=== PATIENT | female | born 1960 | race Caucasian/White ===

== ENCOUNTER → 2016-11-13 | Outpatient (CLI) | payer BC ==
--- NOTE | 2016-11-13 15:22 | KCIC ---
PROCEDURE Two-view right hip HISTORY Right hip pain for 3 or 4 months after injury. COMPARISON None FINDINGS No evidence of bone lesion or bone destruction. No acute fracture. Joint spaces are intact. Mildly air-filled loops of small bowel in the partially visualized right lower quadrant. May represent an ileus. IMPRESSION No acute fracture dislocation. Nonspecific right lower quadrant bowel gas pattern. Electronically signed by: Milton Savage MD (Nov 13, 2016 15:20:39)
== END | disposition home or self-care (01) ==
LOC: KCIC 13:38
PROVIDERS: ATTEND Family Medicine
DX: M25.551 Pain in right hip (principal)
CPT/HCPCS: 73502

== ENCOUNTER → 2016-12-04 | Outpatient (CLI) | payer BC ==
[~2016-12-04] MED LIST: ALPR0.25 PO; ALPR0.5T PO; AMLO10TA4 PO; DICL75TA PO; EZET1TAB5 PO; GLIM1TAB2 PO; GLIM4TAB PO; HYDR-2672 PO; HYDR12.58 PO; LISI40TA PO; METF-620 PO; TRIA1TAB3 PO; VENL150C PO
--- NOTE | 2016-12-04 14:30 | KCIC ---
PROCEDURE Coronary artery calcium score HISTORY Calcium screening. Reason For Study Reason: TYPE II DIABETES, HYPERCHOLESTEROLEMIA, SMOKER / Spl. Instructions: / History: TECHNIQUE High resolution, computed tomography of the heart was performed with ECG gating and suspended respiration using the Siemens HeartView CT. No contrast material was administered. Post processing was performed on the 3-D computer workstation using diastolic phase images to measure the amount of coronary vascular calcium. Scoring was performed utilizing the Agaston Method. FINDINGS Thorax: A 6 millimeter pulmonary nodule is noted in the superior segment right lower lobe. Coronary arteries:CALCIUM IS PRESENT TOTAL AGASTON CALCIUM SCORE =183.3. Calcium is detected in the coronary circulation and confirms the presence of atherosclerotic plaque. The score of each coronary artery is as follows: 29.1 within the left main coronary artery, 94.0 in the LAD, 18.5 in the circumflex, and 41.7 in the right coronary artery. The presence of coronary calcium confirms the presence of atherosclerotic plaque. The greater the amount of coronary calcium, the greater the likelihood of stenotic or occlusive coronary artery disease. However, there is not a one-to-one relationship, and findings may not be site specific. The total amount of calcium correlates best with the total amount of atherosclerotic plaque, although the true "plaque burden" can be underestimated by calcium score. MODERATE coronary atherosclerosis is present. Individuals in this score range typically have mild to moderate luminal irregularity at coronary angiography. There is an INTERMEDIATE RISK of cardiovascular events based on this test. IMPRESSION - 1. Coronary atherosclerosis is present, moderate amount. - 2. Intermediate risk of cardiovascular event. - 3. 6 millimeter pulmonary nodule is noted in the superior segment of the right lower lobe. Followup in 6-12 months is recommended per Fleischner Society recommendations. RECOMMENDATIONS 1. Further evaluation and prevention strategies should be based on global assessment of cardiovascular risk factors in addition to the results of this test. 2. Aggressive reduction of modifiable cardiovascular risk factors should be considered. Additional supporting information concerning the findings and recommendation contained within this report can be found in the consensus statements on coronary vascular calcium published by the [employer] and [employer] and Prevention 5 Conference (Circulation 1996; 94: 4204-6370; J Am Francisco Cardiol 2000; 36: 326-340 and Circulation 2000; 101: 111-116). PQRS STATEMENT One or more of the following individualized dose reduction techniques were utilized for this study: 1.Automated exposure control 2.Adjustment of the mA and/or kV according to patient size 3.Use of iterative reconstruction technique Electronically signed by: Landon Vazquez (Dec 04, 2016 14:29:13)
--- NOTE | 2016-12-04 14:31 | KCIC ---
Bilateral digital screening mammograms with CAD: HISTORY Routine screening. COMPARISON Comparison is made to previous studies dated 11/11/2012. FINDINGS Breast density category B. The skin and nipples show no abnormalities. No abnormal lymph nodes are seen in the axilla. The breast parenchyma shows scattered fibroglandular density. There has been improvement in the appearance of the nodular lesion seen previously which by ultrasound appear to represent cysts. There has however been interval development of additional 4 millimeter nodule centrally in the left breast approximately 8 centimeters deep to the nipple. Further evaluation with ultrasound is recommended. There are no other new dominant masses, suspicious calcifications or architectural distortions. IMPRESSION New 4 millimeter nodule centrally in the left breast approximately 8 centimeters deep to the nipple. Recommend further evaluation with ultrasound. This study was interpreted with the benefit of Computerized Aided Detection (CAD). Mammography is not 100% sensitive in detecting breast cancer. Therefore, a self breast exam and a clinical breast exam are very important. A negative mammogram does not negate a clinically suspicious finding and should not result in a delay in biopsying a clinically suspicious abnormality. BI-RADS category 0: Incomplete. Ultrasound followup is recommended. This patient's information has been entered into a reminder system for the patient to be notified with the results of this examination and a target date for her next mammograms. Electronically signed by: Tatum Kincaid MD (Dec 04, 2016 14:30:02)
== END | disposition home or self-care (01) ==
LOC: KCIC MAMMO 13:10
PROVIDERS: ATTEND Family Medicine
DX: Z12.31 Encounter for screening mammogram for malignant neoplasm of breast (principal); E11.9 Type 2 diabetes mellitus without complications; N63 Unspecified lump in breast; I25.10 Atherosclerotic heart disease of native coronary artery without angina pectoris; E78.00 Pure hypercholesterolemia, unspecified; R91.1 Solitary pulmonary nodule; F17.200 Nicotine dependence, unspecified, uncomplicated
CPT/HCPCS: 75571; G0202; 77067

== ENCOUNTER 2016-12-07 13:37 | Inpatient (IN) | payer BC ==
[~2016-12-07] VITALS: Ht 160 cm; Wt 86.7 kg
[2016-12-07] MEDS ORDERED: PROCHLORPERAZINE 10 MG/2 ML VIAL. IV ONE (14:45)
[2016-12-07] MEDS ORDERED: diphenhydrAMINE 50 MG/ML VIAL IVP ONE (14:45)
[2016-12-07 15:00] LABS: CALCIUM 9.5 mg/dL (8.5-10.1); CREATININE 1.3 mg/dL (0.6-1.0); GFR 42.2; POTASSIUM 4.3 mmol/L (3.5-5.1)
--- NOTE | 2016-12-07 15:32 | RAD ---
Indication headache. Noncontrast images of the head were obtained. No prior imaging of the head is available. An acute calvarial finding is not seen. The visualized paranasal sinuses appear normal. There is no subdural or epidural hematoma. There is a small lucency deep to the right sylvian fissure. This may represent a prominent prominent Virchow Samir space. Microvascular disease accounting for the appearance is not excluded. There is no mass or midline shift. An acute finding is not apparent. There is no evidence of hemorrhage. IMPRESSION: No acute finding apparent in the head PQRS Compliance Statement: One or more of the following individualized dose reduction techniques were utilized for this examination: 1. Automated exposure control 2. Adjustment of the mA and/or kV according to patient size 3. Use of iterative reconstruction technique
--- NOTE | 2016-12-07 16:17 | PHYS DOC ---
Past Medical History Past Medical History: Diabetes-Type II, Hypertension, Other Additional Past Medical Histor: right leg pain Past Surgical History: Appendectomy, Cholecystectomy, , Other Additional Past Surgical Histo: jaw Alcohol Use: Occasionally Drug Use: None Adult General Chief Complaint Chief Complaint: MULTIPLE COMPLAINTS HPI HPI Patient is a 56 year old female who presents with for evaluation of headache, high blood pressure, and high blood glucose. She states she has a gradual onset headache over the past 2 days and has developed bilateral blurry vision today. She denies seeing double, but states both eyes have blurry vision. She does have headaches that this headache started exactly the same as prior, however states this headache is worse than usual; no history of migraines. She notes compliance with her medications. States her blood sugar has been in the 200s and her blood pressure has been in the 180s/90s at home. She saw her retail gift card merchandising this week who stated she has no signs of retinopathy. She denies diplopia, dizziness, trauma, neck pain or manipulation, chest pain, dyspnea, palpitations, diaphoresis, orthopnea, leg pain or swelling , nausea or vomiting, abdominal pain, diarrhea, constipation, dysuria, urinary frequency, fever or chills, or rash. Review of Systems Review of Systems Constitutional: Denies fever or chills [] Eyes: Denies change in visual acuity, redness, or eye pain [] HENT: Denies nasal congestion or sore throat [] Respiratory: Denies cough or shortness of breath [] Cardiovascular: No additional information not addressed in HPI [] GI: Denies abdominal pain, nausea, vomiting, bloody stools or diarrhea [] : Denies dysuria or hematuria [] Musculoskeletal: Denies back pain or joint pain [] Integument: Denies rash or skin lesions [] Neurologic: Denies focal weakness or sensory changes [] Endocrine: Denies polyuria or polydipsia [] Current Medications Current Medications Current Medications Medications (Trade) Dose Ordered Sig/Mercedes Start Time Stop Time Status Last Admin Dose Admin Dexamethasone Sodium Phosphate 10 mg 10 mg 1X ONCE 12/07/16 17:00 12/07/16 17:01 DC 12/07/16 17:06 10 MG Diphenhydramine HCl (Benadryl) 25 mg 1X ONCE 12/07/16 14:45 12/07/16 14:46 DC 12/07/16 14:54 25 MG Haloperidol Lactate (Haldol) 2 mg 1X ONCE 12/07/16 17:00 12/07/16 17:01 DC 12/07/16 17:04 2 MG Ketorolac Tromethamine (Toradol) 15 mg 1X ONCE 12/07/16 16:30 12/07/16 16:31 DC 12/07/16 16:20 15 MG Labetalol HCl (Normodyne) 10 mg 1X ONCE 12/07/16 16:30 12/07/16 16:31 DC 12/07/16 16:20 10 MG Lidocaine HCl (Xylocaine-Mpf 1% Vial) 4 ml 1X STAT 12/07/16 16:54 12/07/16 16:57 DC 12/07/16 17:26 4 ML Magnesium Sulfate/ Dextrose (Magnesium Sulfate PREMIX 1GM) 100 ml @ 100 mls/hr 1X ONCE 12/07/16 17:00 12/07/16 17:59 DC 12/07/16 17:04 100 MLS/HR Prochlorperazine Edisylate (Compazine) 10 mg 1X ONCE 12/07/16 14:45 12/07/16 14:46 DC 12/07/16 14:54 10 MG Allergies Allergies Allergies Coded Allergies Type Severity Reaction Last Updated Verified No Known Drug Allergies 12/07/16 No Physical Exam Physical Exam Constitutional: Well developed, well nourished, no acute distress, non-toxic appearance. [] HENT: Normocephalic, atraumatic, bilateral external ears normal, oropharynx moist, no oral exudates, nose normal. [] Eyes: PERRLA, EOMI, conjunctiva normal, no discharge. [] Neck: Normal range of motion, supple. [] Cardiovascular:Heart rate regular rhythm [] Lungs & Thorax: Bilateral breath sounds clear to auscultation [] Abdomen: Bowel sounds normal, soft, no tenderness. [] Skin: Warm, dry, no erythema, no rash. [] Back: Normal range of motion. [] Extremities: No tenderness, ROM intact, no edema. [] Neurologic: Alert and oriented X 3, normal motor function, normal sensory function, no focal deficits noted, cranial nerves II through XII intact, no nystagmus, no elicited diplopia. [] Psychologic: Affect normal, judgement normal, mood normal. [] Current Patient Data Vital Signs Vital Signs Date Time Temp Pulse Resp B/P Pulse Ox O2 Delivery O2 Flow Rate FiO2 12/07/16 17:51 86 20 180/83 93 12/07/16 17:28 Room Air 12/07/16 14:02 98.1 98.1 Lab Values Laboratory Tests Test 12/07/16 14:30 Sodium Level 133mmol/L (136-145) L Potassium Level 4.3mmol/L (3.5-5.1) Chloride Level 95mmol/L (98-107) L Carbon Dioxide Level 27mmol/L (21-32) Anion Gap 11 (6-14) Blood Urea Nitrogen 23mg/dL (7-20) H Creatinine 1.3mg/dL (0.6-1.0) H Estimated GFR (Cockcroft-Gault) 42.2 Glucose Level 189mg/dL (70-99) H Calcium Level 9.5mg/dL (8.5-10.1) Laboratory Tests 12/07/16 14:30 Radiology/Procedures Radiology/Procedures CT head without contrast IMPRESSION: No acute finding apparent in the head DICTATED and SIGNED BY: INDER RAO MD DATE: 12/07/16 1525 Course & Med Decision Making Course & Med Decision Making Pertinent Labs and Imaging studies reviewed. (See chart for details) Workup is largely unremarkable other than vision changes (states she could not read the paper chart even with her glasses). After multiple medications, her headache is improved/not resolved but her vision is still blurry bilaterally. Will admit for persistent headache with vision changes. Discussed case with Dr. Steele, neurology, who agrees with workup and management thus far and will see her tomorrow. Discussed case with Dr. Terrell, who will admit. Dragon Disclaimer Dragon Disclaimer This electronic medical record was generated, in whole or in part, using a voice recognition dictation system. Departure Departure Impression: Primary Impression: Headache Additional Impression: Blurry vision, bilateral Disposition: ADMITTED INPATIENT Condition: STABLE Referrals: SOHAM AMARAL MD (PCP) Problem Qualifiers Primary Impression: Headache Headache type: unspecified Headache chronicity pattern: acute headache Intractability: intractable Qualified Code: R51 - Headache Mery ANGUIANO MD December 07, 2016 16:17
[2016-12-07] MEDS ORDERED: KETOROLAC TROMETHAMINE 30 MG/ML INJ. IV ONE (16:30)
[2016-12-07] MEDS ORDERED: LABETALOL 20 MG/4 ML DISP.SYRIN. IVP ONE (16:30)
[2016-12-07] MEDS ORDERED: LIDOCAINE 1% PF 2 ML VIAL. NEB STA (16:54)
[2016-12-07] MEDS ORDERED: DEXAMETHASONE SOD PHOS 20 MG/5 ML VIAL. IV ONE (17:00)
[2016-12-07] MEDS ORDERED: HALOPERIDOL LACTATE 5 MG/ML VIAL. IVP ONE (17:00)
[2016-12-07] MEDS ORDERED: MAGNESIUM SULFATE 1GM 100 ML IV ONE (17:00)
[2016-12-07] MEDS ORDERED: ONDANSETRON PF 4 MG/2 ML VIAL. IV PRN (18:15)
[2016-12-07 18:18] LABS: BASO # 0.1 x10^3/uL (0.0-0.2); BASO % 1 % (0-3); EOS % 2 % (0-3); HEMATOCRIT 40.3 % (36.0-47.0); HEMOGLOBIN 13.4 g/dL (12.0-15.5); LYMPH # 1.1 x10^3/uL (1.0-4.8); LYMPH % 10 % (24-48); MEAN CORPUSCULAR HEMOGLOBIN 33 pg (25-35); MEAN CORPUSCULAR HGB CONC 33 g/dL (31-37); MEAN CORPUSCULAR VOLUME 98 fL (79-100); MONO % 7 % (0-9); NEUT % 81 % (31-73); PLATELET COUNT 400 x10^3/uL (140-400); RED CELL DISTRIBUTION WIDTH 13.5 % (11.5-14.5); WHITE BLOOD COUNT 11.2 x10^3/uL (4.0-11.0)
[2016-12-07] MEDS: ACETAMINOPHEN 325 MG TABLET. PO PRN (19:51)
[2016-12-07 21:01] VITALS: BP 170/61
[2016-12-07] MEDS ORDERED: ALPRAZolam 0.5 MG TABLET PO PRN (21:15)
[2016-12-07] MEDS ORDERED: HYDR12.58 PO (21:39)
[2016-12-07] MEDS ORDERED: ALPR0.5T PO (21:39)
[2016-12-07] MEDS ORDERED: GLIM1TAB2 PO (21:39)
[2016-12-07] MEDS ORDERED: LISI40TA PO (21:39)
[2016-12-07] MEDS ORDERED: METF-620 PO (21:39)
[2016-12-07 23:45] VITALS: BP 187/60
[2016-12-08] VITALS (7 sets, daily range): BP systolic 165–218; BP diastolic 66–92
--- NOTE | 2016-12-08 00:28 | HP ---
ADMIT DATE: 12/07/2016 CHIEF COMPLAINT: Headache and visual changes. HISTORY OF PRESENT ILLNESS: The patient is a pleasant 56-year-old female presents with headache. They tried to give her a lot of medicines in the ER, but that did not seem to help. I have discussed the case with ER physician. We are going to admit the patient with consultation to Neurology. I am going to get an MRI as well. PAST MEDICAL HISTORY: Alcohol abuse, tobacco abuse and headache. ALLERGIES: None. FAMILY HISTORY: Headache. SOCIAL HISTORY: She smokes and she drinks. No drugs. She is . MEDICATIONS: Reviewed, please refer to the MRAD. REVIEW OF SYSTEMS: GENERAL: No history of weight change, weakness or fevers. SKIN: No bruising, hair changes or rashes. EYES: No blurred, double or loss of vision. NOSE AND THROAT: No history of nosebleeds, hoarseness or sore throat. HEART: No history of palpitations, chest pain or shortness of breath on exertion. LUNGS: Denies cough, hemoptysis, wheezing or shortness of breath. GASTROINTESTINAL: Denies changes in appetite, nausea, vomiting, diarrhea or constipation. GENITOURINARY: No history of frequency, urgency, hesitancy or nocturia. NEUROLOGIC: She complains of headache. She does complain of visual changes. PSYCHIATRIC: No history of panic, anxiety or depression. ENDOCRINE: No history of heat or cold intolerance, polyuria or polydipsia. EXTREMITIES: Denies muscle weakness, joint pain, pain on walking or stiffness. PHYSICAL EXAMINATION: VITAL SIGNS: Temperature afebrile, pulse 77, respirations 23, blood pressure 116/70. GENERAL: She is alert, cooperative, complaining of headache. HEART: Normal S1, S2. LUNGS: Diminished with wheezing from her smoking, suspect she has COPD. ABDOMEN: Positive bowel sounds, nontender. EXTREMITIES: Trace edema. SKIN: No rashes. PSYCHIATRIC: She is depressed. VASCULAR: Good capillary refill. ENDOCRINE: No thyromegaly. LYMPHATICS: No cervical nodes. HEMATOPOIETIC: No bruising. NEUROLOGICAL: She is moving all extremities. No focal deficits. ASSESSMENT AND PLAN: Headache, suspect migraine variant with some visual changes. The patient has been admitted. We will get an MRI in the morning. Consult Neurology. p.r.n. antiemetics, p.r.n. narcotics, IV fluids. DORAL Estrellita RIZO DO DR: DUSTIN/conor JOB#: [id number] / [id number]
[2016-12-08] MEDS: ACETAMINOPHEN 325 MG TABLET. PO PRN (05:40)
--- NOTE | 2016-12-08 06:52 | ACF ---
Admission Forms Criteria HEADACHES Clinical Indications for Admission to Inpatient Care (Place 'X' for any and all applicable criteria): Admission is indicated for ANY ONE of the following(1)(2)(3)(4): [X]I. Inpatient admission required rather than observational care (Also use Headaches: Observation Care as appropriate) because of ANY ONE of the following: [ ]a) Severe pain requiring acute inpatient management [ ]b) Altered mental status that is severe or persistent [ ]c) Vomiting or dehydration that is severe or persistent [ ]d) New-onset focal neurologic deficit that is severe or persistent [X]e) Hypertension requiring inpatient treatment [ ]f) Severe (new) neurologic findings requiring inpatient care as indicated by ANY ONE of following(9)(10): [ ]1) Papilledema [ ]2) Cerebral edema [ ]3) Mass effect on CT scan [ ]4) Cerebral bleeding, ischemia, or vasospasm(16) [ ]5) Hydrocephalus(17) [ ]6) Uncontrolled seizures [ ]g) IV infusion of anticoagulation, platelet inhibitors vasoactive, or antiarrhythmic medication. [ ]h) Cerebral bleeding, hydrocephalus, or vasospasm monitoring (16) [ ]i) Increased intracranial pressure or cerebral edema monitoring (17) [ ]j) Other condition, treatment or monitoring requiring inpatient admission [ ]II. Unruptured but threatening aneurysm or vascular malformation [ ]III. Venous sinus thrombosis [ ]IV. Increased intracranial pressure [ ]V. Cerebral spinal fluid leak with decreased intracranial pressure [ ]. Medication-overuse headache that has failed all outpatient management options [ ]VII. Vasculitis (eg, giant cell (temporal) arteritis, central nervous system vasculitis) requiring IV corticosteroids, IV antithrombotic therapy, or inpatient monitoring (eg, visual symptoms or findings, other ischemic manifestations)[A](10)(11) Extended stay beyond goal length of stay may be needed for (27): [ ]a) Intractable migraine [ ]b) Subarachnoid or intracranial hemorrhage [ ]c) Malignant hypertension [ ]d) Detoxification from drug withdrawal in medication-overuse headache (29) The original [facility] [employer] content created by Linnea Weaver has been revised. The portions of the content which have been revised are identified through the use of italic text or in bold, and Linnea Weaver has neither reviewed nor approved the modified material.All other unmodified content is copyright [facility]. Please see references footnoted in the original [facility] edition 2016 Admission Criteria Met?: Yes KRANTHI COSME December 08, 2016 06:52
[2016-12-08] MEDS ORDERED: DEXTROSE 50% 25 GM / 50ML DISP.SYRIN. IV PRN (08:15)
--- NOTE | 2016-12-08 08:15 | PDOC ---
PROGRESS NOTES Chief Complaint Chief Complaint cc: headaches A/P Headaches with blurring of vision, acute onset, ? CVA vs Migraine HTN DM with hyperglycemia Plan Pain control neurology consult MRI brain Echo Bp control, on Lisinopril, PRN hydralazine SSI home medications resumed today PT/OT History of Present Illness History of Present Illness Blurring of vision headache better no fever Vitals Vitals Vital Signs Date Time Temp Pulse Resp B/P Pulse Ox O2 Delivery O2 Flow Rate FiO2 12/08/16 08:05 Room Air 12/08/16 07:00 98.3 80 18 165/66 97 98.3 Physical Exam General: Alert, Oriented X3 Heart: Normal S1, Normal S2 Abdomen: Normal bowel sounds Extremities: No clubbing Labs LABS Laboratory Tests Test 12/07/16 14:30 12/08/16 03:45 White Blood Count 11.2x10^3/uL (4.0-11.0) Red Blood Count 4.10x10^6/uL (3.50-5.40) Hemoglobin 13.4g/dL (12.0-15.5) Hematocrit 40.3% (36.0-47.0) Mean Corpuscular Volume 98fL (79-100) Mean Corpuscular Hemoglobin 33pg (25-35) Mean Corpuscular Hemoglobin Concent 33g/dL (31-37) Red Cell Distribution Width 13.5% (11.5-14.5) Platelet Count 400x10^3/uL (140-400) Neutrophils (%) (Auto) 81% (31-73) Lymphocytes (%) (Auto) 10% (24-48) Monocytes (%) (Auto) 7% (0-9) Eosinophils (%) (Auto) 2% (0-3) Basophils (%) (Auto) 1% (0-3) Neutrophils # (Auto) 9.1x10^3uL (1.8-7.7) Lymphocytes # (Auto) 1.1x10^3/uL (1.0-4.8) Monocytes # (Auto) 0.7x10^3/uL (0.0-1.1) Eosinophils # (Auto) 0.3x10^3/uL (0.0-0.7) Basophils # (Auto) 0.1x10^3/uL (0.0-0.2) Erythrocyte Sedimentation Rate 23 (0-25) Sodium Level 133mmol/L (136-145) Potassium Level 4.3mmol/L (3.5-5.1) Chloride Level 95mmol/L (98-107) Carbon Dioxide Level 27mmol/L (21-32) Anion Gap 11 (6-14) Blood Urea Nitrogen 23mg/dL (7-20) Creatinine 1.3mg/dL (0.6-1.0) Estimated GFR (Cockcroft-Gault) 42.2 Glucose Level 189mg/dL (70-99) Calcium Level 9.5mg/dL (8.5-10.1) Glucose (Fingerstick) 217mg/dL (70-99) Assessment and Plan Assessmemt and Plan Problems Medical Problems: (1) Blurry vision, bilateral Status: Acute (2) Headache Status: Acute Problems: Comment Review of Relevant I have reviewed the following items beto (where applicable) has been applied. Labs Laboratory Tests Test 12/07/16 14:30 12/08/16 03:45 White Blood Count 11.2x10^3/uL (4.0-11.0) Red Blood Count 4.10x10^6/uL (3.50-5.40) Hemoglobin 13.4g/dL (12.0-15.5) Hematocrit 40.3% (36.0-47.0) Mean Corpuscular Volume 98fL (79-100) Mean Corpuscular Hemoglobin 33pg (25-35) Mean Corpuscular Hemoglobin Concent 33g/dL (31-37) Red Cell Distribution Width 13.5% (11.5-14.5) Platelet Count 400x10^3/uL (140-400) Neutrophils (%) (Auto) 81% (31-73) Lymphocytes (%) (Auto) 10% (24-48) Monocytes (%) (Auto) 7% (0-9) Eosinophils (%) (Auto) 2% (0-3) Basophils (%) (Auto) 1% (0-3) Neutrophils # (Auto) 9.1x10^3uL (1.8-7.7) Lymphocytes # (Auto) 1.1x10^3/uL (1.0-4.8) Monocytes # (Auto) 0.7x10^3/uL (0.0-1.1) Eosinophils # (Auto) 0.3x10^3/uL (0.0-0.7) Basophils # (Auto) 0.1x10^3/uL (0.0-0.2) Erythrocyte Sedimentation Rate 23 (0-25) Sodium Level 133mmol/L (136-145) Potassium Level 4.3mmol/L (3.5-5.1) Chloride Level 95mmol/L (98-107) Carbon Dioxide Level 27mmol/L (21-32) Anion Gap 11 (6-14) Blood Urea Nitrogen 23mg/dL (7-20) Creatinine 1.3mg/dL (0.6-1.0) Estimated GFR (Cockcroft-Gault) 42.2 Glucose Level 189mg/dL (70-99) Calcium Level 9.5mg/dL (8.5-10.1) Glucose (Fingerstick) 217mg/dL (70-99) Laboratory Tests Test 12/07/16 14:30 12/08/16 03:45 White Blood Count 11.2x10^3/uL (4.0-11.0) Red Blood Count 4.10x10^6/uL (3.50-5.40) Hemoglobin 13.4g/dL (12.0-15.5) Hematocrit 40.3% (36.0-47.0) Mean Corpuscular Volume 98fL (79-100) Mean Corpuscular Hemoglobin 33pg (25-35) Mean Corpuscular Hemoglobin Concent 33g/dL (31-37) Red Cell Distribution Width 13.5% (11.5-14.5) Platelet Count 400x10^3/uL (140-400) Neutrophils (%) (Auto) 81% (31-73) Lymphocytes (%) (Auto) 10% (24-48) Monocytes (%) (Auto) 7% (0-9) Eosinophils (%) (Auto) 2% (0-3) Basophils (%) (Auto) 1% (0-3) Neutrophils # (Auto) 9.1x10^3uL (1.8-7.7) Lymphocytes # (Auto) 1.1x10^3/uL (1.0-4.8) Monocytes # (Auto) 0.7x10^3/uL (0.0-1.1) Eosinophils # (Auto) 0.3x10^3/uL (0.0-0.7) Basophils # (Auto) 0.1x10^3/uL (0.0-0.2) Erythrocyte Sedimentation Rate 23 (0-25) Sodium Level 133mmol/L (136-145) Potassium Level 4.3mmol/L (3.5-5.1) Chloride Level 95mmol/L (98-107) Carbon Dioxide Level 27mmol/L (21-32) Anion Gap 11 (6-14) Blood Urea Nitrogen 23mg/dL (7-20) Creatinine 1.3mg/dL (0.6-1.0) Estimated GFR (Cockcroft-Gault) 42.2 Glucose Level 189mg/dL (70-99) Calcium Level 9.5mg/dL (8.5-10.1) Glucose (Fingerstick) 217mg/dL (70-99) Medications Current Medications Prochlorperazine Edisylate (Compazine) 10 mg 1X ONCE IV Last administered on 14:54; Start 12/07/16 at 14:45; Stop 12/07/16 at 14:46; Status DC Diphenhydramine HCl (Benadryl) 25 mg 1X ONCE IVP Last administered on 14:54; Start 12/07/16 at 14:45; Stop 12/07/16 at 14:46; Status DC Ketorolac Tromethamine (Toradol) 15 mg 1X ONCE IV Last administered on 16:20; Start 12/07/16 at 16:30; Stop 12/07/16 at 16:31; Status DC Labetalol HCl (Normodyne) 10 mg 1X ONCE IVP Last administered on 12/07/16 16: 20; Start 12/07/16 at 16:30; Stop 12/07/16 at 16:31; Status DC Dexamethasone Sodium Phosphate 10 mg 10 mg 1X ONCE IV Last administered on 12/07 17:06; Start 12/07/16 at 17:00; Stop 12/07/16 at 17:01; Status DC Magnesium Sulfate/ Dextrose (Magnesium Sulfate PREMIX 1GM) 100 ml @ 100 mls/hr 1X ONCE IV Last administered on 12/07/16 17:04; Start 12/07/16 at 17:00; Stop 12/07/16 at 17:59; Status DC Haloperidol Lactate (Haldol) 2 mg 1X ONCE IVP Last administered on 12/07/16 17 :04; Start 12/07/16 at 17:00; Stop 12/07/16 at 17:01; Status DC Lidocaine HCl (Xylocaine-Mpf 1% Vial) 4 ml 1X STAT NEB Last administered on 17:26; Start 12/07/16 at 16:54; Stop 12/07/16 at 16:57; Status DC Ondansetron HCl (Zofran) 4 mg PRN Q8HRS PRN IV NAUSEA/VOMITING; Start 12/07/16 at 18:15; Stop 12/08/16 at 18:14 Acetaminophen (Tylenol) 650 mg PRN Q4HRS PRN PO FEVER/PAIN Last administered on 12/08/16 05:40; Start 12/07/16 at 18:15; Stop 12/08/16 at 18:14 Alprazolam (Xanax) 0.5 mg PRN TID PRN PO ANXIETY / AGITATION Last administered on 12/07/16 21:31; Start 12/07/16 at 21:15 Insulin Aspart (Novolog) 0-9 UNITS TIDWMEALS SQ ; Start 12/08/16 at 09:00 Dextrose (Dextrose 50%-Water Syringe) 12.5 gm PRN Q15MIN PRN IV SEE COMMENTS; Start 12/08/16 at 08:15; Status UNV Active Scripts Active Reported Xanax (Alprazolam) 0.5 Mg Tablet 1 Tab PO TID PRN Glimepiride 1 Mg Tablet Unknown Dose PO DAILY Metformin Hcl 1,000 Mg Tablet 1,000 Mg PO BIDWMEALS Hydrochlorothiazide Tablet (Hydrochlorothiazide) 12.5 Mg Tablet 12.5 Mg PO DAILY Lisinopril 40 Mg Tablet 1 Tab PO DAILY Vitals/I & O Vital Sign - Last 24 Hours 12/07/16 12/07/16 12/07/16 12/07/16 14:02 15:54 16:20 16:28 Temp 98.1 98.1 Pulse 117 96 94 82 Resp 20 20 20 B/P 215/109 194/89 194/89 193/88 Pulse Ox 99 96 92 O2 Delivery Room Air 12/07/16 12/07/16 12/07/16 12/07/16 16:36 16:51 17:28 17:51 Pulse 78 76 86 Resp 20 20 20 B/P 151/68 146/97 180/83 Pulse Ox 94 94 99 93 O2 Delivery Room Air 12/07/16 12/07/16 12/07/16 12/08/16 21:01 21:40 23:45 03:45 Temp 98.3 98.5 98.1 98.3 98.5 98.1 Pulse 79 85 83 Resp 16 16 16 B/P 170/61 187/60 181/85 Pulse Ox 96 95 96 O2 Delivery Room Air Room Air Room Air Room Air 12/08/16 12/08/16 07:00 08:05 Temp 98.3 98.3 Pulse 80 Resp 18 B/P 165/66 Pulse Ox 97 O2 Delivery Room Air Room Air Intake and Output 12/07/16 12/07/16 12/08/16 14:59 22:59 06:59 Intake Total 1020 ml Balance 1020 ml CHARMAINE HARDY MD December 08, 2016 08:15
[2016-12-08] MEDS: INSULIN ASPART 300 UNITS/3 ML INSULN.PEN SQ SCH ×3 (09:00→17:00)
[2016-12-08] MEDS ORDERED: LISI40TA PO ×2 (10:58)
[2016-12-08] MEDS ORDERED: EZET1TAB5 PO (10:58)
[2016-12-08] MEDS ORDERED: GLIM4TAB PO (11:04)
[2016-12-08] MEDS ORDERED: ALPR0.25 PO (11:04)
[2016-12-08] MEDS ORDERED: VENL150C PO (11:04)
[2016-12-08] MEDS ORDERED: DICL75TA PO (11:11)
[2016-12-08] MEDS ORDERED: HYDR-2672 PO (11:14)
[2016-12-08] MEDS ORDERED: TRIA1TAB3 PO (11:14)
--- NOTE | 2016-12-08 11:49 | PDOC2 ---
NEUROLOGY CONSULT Date of Admission Date of Admission DATE: 12/08/16 TIME: 11:42 Reason for Consult Reason for Consult: Headache and blurred vision Referring Physician Referring Physician: Dr. Terrell PCP: Dr. Arriaga Source Source: Chart review, Patient History of Present Illness History of Present Illness The patient is a 56-year-old right-handed female who developed headache and blurred vision of gradual onset yesterday. She does have a history of headaches but not with migraine symptoms such as photophonophobia or nausea. She just saw her eye doctor for diabetic exam a week ago and checked out fine. Her headache is now 2/10. She still has the blurred vision. There is no history of stroke, seizure, or head injury. Past Medical History Cardiovascular: HTN Psych: Anxiety Endocrine: Diabetes Past Surgical History Past Surgical History: Appendectomy, Cholecystectomy Family History Family History: Cancer Social History Social History , one pack per day cigarettes, drinks beer 2 or 3 days a week Current Medications Current Medications Current Medications Prochlorperazine Edisylate (Compazine) 10 mg 1X ONCE IV Last administered on 14:54; Start 12/07/16 at 14:45; Stop 12/07/16 at 14:46; Status DC Diphenhydramine HCl (Benadryl) 25 mg 1X ONCE IVP Last administered on 14:54; Start 12/07/16 at 14:45; Stop 12/07/16 at 14:46; Status DC Ketorolac Tromethamine (Toradol) 15 mg 1X ONCE IV Last administered on 16:20; Start 12/07/16 at 16:30; Stop 12/07/16 at 16:31; Status DC Labetalol HCl (Normodyne) 10 mg 1X ONCE IVP Last administered on 12/07/16 16: 20; Start 12/07/16 at 16:30; Stop 12/07/16 at 16:31; Status DC Dexamethasone Sodium Phosphate 10 mg 10 mg 1X ONCE IV Last administered on 12/07 17:06; Start 12/07/16 at 17:00; Stop 12/07/16 at 17:01; Status DC Magnesium Sulfate/ Dextrose (Magnesium Sulfate PREMIX 1GM) 100 ml @ 100 mls/hr 1X ONCE IV Last administered on 12/07/16 17:04; Start 12/07/16 at 17:00; Stop 12/07/16 at 17:59; Status DC Haloperidol Lactate (Haldol) 2 mg 1X ONCE IVP Last administered on 12/07/16 17 :04; Start 12/07/16 at 17:00; Stop 12/07/16 at 17:01; Status DC Lidocaine HCl (Xylocaine-Mpf 1% Vial) 4 ml 1X STAT NEB Last administered on 17:26; Start 12/07/16 at 16:54; Stop 12/07/16 at 16:57; Status DC Ondansetron HCl (Zofran) 4 mg PRN Q8HRS PRN IV NAUSEA/VOMITING; Start 12/07/16 at 18:15; Stop 12/08/16 at 18:14 Acetaminophen (Tylenol) 650 mg PRN Q4HRS PRN PO FEVER/PAIN Last administered on 12/08/16 05:40; Start 12/07/16 at 18:15; Stop 12/08/16 at 18:14 Alprazolam (Xanax) 0.5 mg PRN TID PRN PO ANXIETY / AGITATION Last administered on 12/07/16 21:31; Start 12/07/16 at 21:15 Insulin Aspart (Novolog) 0-9 UNITS TIDWMEALS SQ ; Start 12/08/16 at 09:00 Dextrose (Dextrose 50%-Water Syringe) 12.5 gm PRN Q15MIN PRN IV SEE COMMENTS; Start 12/08/16 at 08:15 Metformin HCl (Glucophage) 1,000 mg BIDWMEALS PO ; Start 12/08/16 at 11:00 Alprazolam (Xanax) 0.75 mg TID PO ; Start 12/08/16 at 14:00; Status UNV Acetaminophen/ Hydrocodone Bitart (Lortab 10/325) 1 tab PRN Q6HRS PRN PO PAIN; Start 12/08/16 at 11:45; Status UNV Lisinopril (Prinivil) 20 mg HS PO ; Start 12/08/16 at 21:00; Status UNV Lisinopril (Prinivil) 40 mg DAILY PO ; Start 12/09/16 at 09:00; Status UNV Triamterene/HCTZ (Maxzide 37.5/ 25mg) 0.5 tab DAILY PO ; Start 12/09/16 at 09:00 ; Status UNV Non-Formulary Medication 75 mg BID PO ; Start 12/08/16 at 21:00; Status UNV Non-Formulary Medication 1 tab HS PO ; Start 12/08/16 at 21:00; Status UNV Non-Formulary Medication 1 tab DAILY PO ; Start 12/09/16 at 09:00; Status UNV Non-Formulary Medication 150 mg BID PO ; Start 12/08/16 at 21:00; Status UNV Active Scripts Active Reported Hydrocodone-Apap 10-325 (Hydrocodone Bit/Acetaminophen) 1 Each Tablet 1 Tab PO PRN Q6HRS PRN Triamterene-Hctz 37.5-25 Mg Tb (Triamterene/Hydrochlorothiazid) 1 Each Tablet 0.5 Tab PO DAILY Diclofenac Sodium 75 Mg Tablet.dr 75 Mg PO BID Xanax (Alprazolam) 0.25 Mg Tablet 3 Tab PO TID Amaryl (Glimepiride) 4 Mg Tablet 1 Tab PO DAILY Effexor Xr (Venlafaxine Hcl) 150 Mg Cap.er.24h 150 Mg PO BID Lisinopril 40 Mg Tablet 40 Mg PO DAILY Lisinopril 40 Mg Tablet 0.5 Tab PO HS Vytorin 10-40 Mg Tablet (Ezetimibe/Simvastatin) 1 Each Tablet 1 Tab PO HS Metformin Hcl 1,000 Mg Tablet 1,000 Mg PO BIDWMEALS Allergies Allergies: Coded Allergies: No Known Drug Allergies (Unverified , 12/07/16) ROS Review of System Negative for fevers, chills, weight loss, shortness of breath, chest pain, indigestion, hematochezia, melena, dysuria. Full 14-point review systems is negative. Physical Exam Physical Examination PHYSICAL EXAMINATION: Vital signs: see above. General appearance is normal and in no acute distress. HEENT: Normocephalic and nontraumatic. Eyes, nose, ears, and throat are unremarkable. Temporal arteries are pulsatile and nontender Neck is supple. No lymphadenopathy. No bruits are heard over the carotid artery. No crepitus. NEUROLOGICAL EXAMINATION: Mental Status Examination: Alert. Oriented to time, place, and person. Answers questions and follows commends. Pupils are equal round and reactive to light and accommodation. Funduscopic exam: No papilledema. Extraocular movements are intact. Visual field exam shows no defect on the direct confrontation. No motor or sensory deficits on the facial exam. Uvula in the midline and the soft palate elevated symmetrically. No deviation of the tongue to any direction. Gross hearing is normal. Shoulder shrug normal. Muscle tone is normal. Muscle strength is 5. Deep tendon reflexes are 2+ all around. Plantar reflex is with flexion response bilaterally. Ojlhtp-kn-twnz test performance is accurate. Tandem walk test is accurate. Alternative movements are accurate. Romberg test is negative. Gait is normal. Stocking pinprick sensory loss. No cerebellar signs are elicited. Vitals VITALS Vital Signs Date Time Temp Pulse Resp B/P Pulse Ox O2 Delivery O2 Flow Rate FiO2 12/08/16 11:10 193/76 12/08/16 11:09 97.7 90 18 95 Room Air 97.7 Labs Labs Laboratory Tests Test 12/07/16 14:30 12/08/16 03:45 White Blood Count 11.2x10^3/uL (4.0-11.0) Red Blood Count 4.10x10^6/uL (3.50-5.40) Hemoglobin 13.4g/dL (12.0-15.5) Hematocrit 40.3% (36.0-47.0) Mean Corpuscular Volume 98fL (79-100) Mean Corpuscular Hemoglobin 33pg (25-35) Mean Corpuscular Hemoglobin Concent 33g/dL (31-37) Red Cell Distribution Width 13.5% (11.5-14.5) Platelet Count 400x10^3/uL (140-400) Neutrophils (%) (Auto) 81% (31-73) Lymphocytes (%) (Auto) 10% (24-48) Monocytes (%) (Auto) 7% (0-9) Eosinophils (%) (Auto) 2% (0-3) Basophils (%) (Auto) 1% (0-3) Neutrophils # (Auto) 9.1x10^3uL (1.8-7.7) Lymphocytes # (Auto) 1.1x10^3/uL (1.0-4.8) Monocytes # (Auto) 0.7x10^3/uL (0.0-1.1) Eosinophils # (Auto) 0.3x10^3/uL (0.0-0.7) Basophils # (Auto) 0.1x10^3/uL (0.0-0.2) Erythrocyte Sedimentation Rate 23 (0-25) Sodium Level 133mmol/L (136-145) Potassium Level 4.3mmol/L (3.5-5.1) Chloride Level 95mmol/L (98-107) Carbon Dioxide Level 27mmol/L (21-32) Anion Gap 11 (6-14) Blood Urea Nitrogen 23mg/dL (7-20) Creatinine 1.3mg/dL (0.6-1.0) Estimated GFR (Cockcroft-Gault) 42.2 Glucose Level 189mg/dL (70-99) Calcium Level 9.5mg/dL (8.5-10.1) Glucose (Fingerstick) 217mg/dL (70-99) Laboratory Tests Test 12/07/16 14:30 12/08/16 03:45 White Blood Count 11.2x10^3/uL (4.0-11.0) Red Blood Count 4.10x10^6/uL (3.50-5.40) Hemoglobin 13.4g/dL (12.0-15.5) Hematocrit 40.3% (36.0-47.0) Mean Corpuscular Volume 98fL (79-100) Mean Corpuscular Hemoglobin 33pg (25-35) Mean Corpuscular Hemoglobin Concent 33g/dL (31-37) Red Cell Distribution Width 13.5% (11.5-14.5) Platelet Count 400x10^3/uL (140-400) Neutrophils (%) (Auto) 81% (31-73) Lymphocytes (%) (Auto) 10% (24-48) Monocytes (%) (Auto) 7% (0-9) Eosinophils (%) (Auto) 2% (0-3) Basophils (%) (Auto) 1% (0-3) Neutrophils # (Auto) 9.1x10^3uL (1.8-7.7) Lymphocytes # (Auto) 1.1x10^3/uL (1.0-4.8) Monocytes # (Auto) 0.7x10^3/uL (0.0-1.1) Eosinophils # (Auto) 0.3x10^3/uL (0.0-0.7) Basophils # (Auto) 0.1x10^3/uL (0.0-0.2) Erythrocyte Sedimentation Rate 23 (0-25) Sodium Level 133mmol/L (136-145) Potassium Level 4.3mmol/L (3.5-5.1) Chloride Level 95mmol/L (98-107) Carbon Dioxide Level 27mmol/L (21-32) Anion Gap 11 (6-14) Blood Urea Nitrogen 23mg/dL (7-20) Creatinine 1.3mg/dL (0.6-1.0) Estimated GFR (Cockcroft-Gault) 42.2 Glucose Level 189mg/dL (70-99) Calcium Level 9.5mg/dL (8.5-10.1) Glucose (Fingerstick) 217mg/dL (70-99) ESR [address] head: Noncontrast images of the head were obtained. No prior imaging of the head is available. An acute calvarial finding is not seen. The visualized paranasal sinuses appear normal. There is no subdural or epidural hematoma. There is a small lucency deep to the right sylvian fissure. This may represent a prominent prominent Virchow Samir space. Microvascular disease accounting for the appearance is not excluded. There is no mass or midline shift. An acute finding is not apparent. There is no evidence of hemorrhage. IMPRESSION: No acute finding apparent in the head Assessment/Plan Assessment/Plan Impression: Headache and visual symptoms most consistent with migraine, but headache features are atypical for migraine, she has no history of migraine, although she has some history of tension headaches. I find nothing wrong with her bedside exam including for endoscopy. There is no evidence of temporal arteritis. Recommendations: MRI of the brain with MR venogram and arteriogram Consider lumbar puncture if the studies are unrewarding Continue current supportive therapy. Again, her headache is now down to 2/10. Thank you for letting me help with the patient's care. HERMINIA DIALLO MD December 08, 2016 11:49
[2016-12-08] MEDS: TRIAMTERENE/HCTZ 37.5/25MG TABLET. PO SCH (12:06)
[2016-12-08] MEDS: DICLOFENAC SODIUM 25 MG TABLET.DR PO SCH ×2 (12:07→20:41)
[2016-12-08] MEDS: HYDROcodone/APAP 10/325 1 TAB TABLET PO PRN ×2 (12:07→18:11)
[2016-12-08] MEDS: LISINOPRIL 40 MG TABLET. PO SCH (12:08)
[2016-12-08] MEDS: GLIMEPIRIDE 2 MG TABLET. PO SCH (12:08)
[2016-12-08] MEDS: VENLAFAXINE 75 MG TABLET. PO SCH ×2 (12:18→20:40)
[2016-12-08] MEDS ORDERED: GADOBUTROL 10 MMOL/10 ML VIAL IV ONE (13:45)
--- NOTE | 2016-12-08 14:34 | RAD ---
PROCEDURE MRI brain with and without contrast. HISTORY Headaches and blurred vision. TECHNIQUE Sagittal T1, sagittal FLAIR, axial T1, axial T2, axial FLAIR, axial T2 gradient, diffusion imaging with ADC map, post-contrast axial, post-contrast sagittal, and post-contrast coronal sequences are provided. 9 milliliters of intravenous Gadavist was administered without complication. COMPARISON CT head from 1 day earlier. FINDINGS There is increased signal on FLAIR imaging mostly involving subcortical white matter in both occipital and parietal lobes, patchy. There is some increased signal on diffusion imaging in this distribution under a centimeter in size but this is probably T2 shine through, there is no ADC correlate. Appearance and distribution are compatible with posterior reversible encephalopathy syndrome. The ventricles and sulci are within normal limits for age. There is no acute intracranial hemorrhage or extra-axial fluid collection. There is no mass effect or midline shift. There is no restricted diffusion in a pattern to suggest an acute infarct. Cervicomedullary junction is unremarkable. Intracranial flow voids are preserved. Right greater than left mastoid air cells are partially opacified. The paranasal sinuses are clear. Fluid in the optic sheaths can be a finding of elevated intracranial pressures. Patchy enhancement corresponds to the areas of FLAIR hyperintensity in the parietal and occipital lobes. No additional area of pathologic enhancement is apparent. IMPRESSION FLAIR hyperintensities involving subcortical white matter with patchy associated enhancement in the parietal and occipital lobes. Appearance and distribution is most suggestive of posterior reversible encephalopathy syndrome. Short-term follow-up may be of benefit. Electronically signed by: Jose Jaimes MD (December 08, 2016 14:33:01)
--- NOTE | 2016-12-08 14:42 | RAD ---
PROCEDURE MR venogram. HISTORY Headaches and blurred vision. TECHNIQUE Source images and 3D maximum intensity projection re-formatted images are provided. COMPARISON MRI brain from the same day. FINDINGS Superior sagittal sinus appears patent as do the transverse sinuses and sigmoid sinuses. Deep cerebral veins are patent. No persistent filling defect is identified. IMPRESSION Normal MR venogram. Electronically signed by: Jose Jaimes MD (December 08, 2016 14:41:04)
--- NOTE | 2016-12-08 16:22 | CARD ---
APPROVED REPORT EXAM: Two-dimensional and M-mode echocardiogram with Doppler and color Doppler. Other Information Quality : AverageHR: 89bpm Rhythm : NSR INDICATION CVA/TIA Echo Enhancing Agent Indication: Rule Out Septal Defect Agent/Amount Used: Agitated Saline 8mL 2D DIMENSIONS RVDd3.1 (2.9-3.5cm)Left Atrium(2D)3.7 (1.6-4.0cm) IVSd1.0 (0.7-1.1cm)Aortic Root(2D)3.0 (2.0-3.7cm) LVDd4.2 (3.9-5.9cm)LVOT Diameter2.3 (1.8-2.4cm) PWd1.1 (0.7-1.1cm)LVDs2.8 (2.5-4.0cm) FS (%) 33.4 %SV49.0 ml LVEF(%)62.4 (>50%) Aortic Valve AoV Peak Mckinley.130.5cm/sAoV VTI28.1cm AO Peak GR.6.8mmHgLVOT Peak Mckinley.104.2cm/s LVOT VTI 22.18cmAO Mean GR.4mmHg IVETT (VMAX)3.72ey0OLY (VTI)3.29cm2 Mitral Valve MV E Zclfdbxm09.3cm/sMV DECEL [id number] MV A Byqxkldm75.0cm/sMV E Mean Gr.5mmHg MV [id number]/A Ratio0.9 MV A [id number] (PHT)5.78cm2 TDI E/Lateral E'9.7E/Medial E'11.5 Pulmonary Valve PV Peak Oeanqhas917.9cm/sPV Peak Grad.4mmHg RVOT VTI16.4cm LEFT VENTRICLE The left ventricle is normal size. There is normal left ventricular wall thickness. Left ventricle sy stolic function is normal. The Ejection Fraction is 60-65%. There is grossly normal LV segmental wall motion. Transmitral Doppler flow pattern is Grade I-abnormal relaxation pattern. There is no ventric ular septal defect visualized. RIGHT VENTRICLE The right ventricle is normal size. The right ventricle is mildly hypertrophied. The right ventricula r systolic function is normal. ATRIA The left atrium size is normal. The right atrium size is normal. The interatrial septum is intact wit h no evidence for an atrial septal defect or patent foramen ovale as noted on 2-D or Doppler imaging. AORTIC VALVE The aortic valve is normal in structure and function. Doppler and Color Flow revealed no significant aortic regurgitation. There is no significant aortic valvular stenosis. MITRAL VALVE The mitral valve is normal in structure and function. There is no evidence of mitral valve prolapse. There is no mitral valve stenosis. Doppler and Color Flow revealed no mitral valve regurgitation note d. TRICUSPID VALVE The tricuspid valve is normal in structure and function. No tricuspid regurgitation. There is no tric uspid valve stenosis. PULMONIC VALVE Doppler and Color Flow revealed trace pulmonic valvular regurgitation. There is no pulmonic valvular stenosis. GREAT VESSELS The aortic root is normal in size. The ascending aorta is normal in size. Normal pulmonary venous robles w (Doppler). The IVC is normal in size and collapses >50% with inspiration. PERICARDIAL EFFUSION There is no pleural effusion. There is no evidence of significant pericardial effusion. Critical Notification Critical Value: No <Conclusion> Left ventricle systolic function is normal. The Ejection Fraction is 60-65%. There is grossly normal LV segmental wall motion.
[2016-12-08] MEDS: ASPIRIN CHEWABLE 81 MG TABLET. PO SCH (17:21)
[2016-12-08] MEDS: ALPRAZolam 0.25 MG TABLET PO SCH ×2 (17:22→20:41)
[2016-12-08] MEDS: LISINOPRIL 20 MG TABLET PO SCH (20:42)
[2016-12-08] MEDS ORDERED: EZETIMIBE 10 MG TABLET. PO SCH (21:00)
[2016-12-08] MEDS ORDERED: SIMVASTATIN 40 MG TABLET. PO SCH (21:00)
[2016-12-09] MEDS: HYDROcodone/APAP 10/325 1 TAB TABLET PO PRN ×2 (03:18→09:41)
[2016-12-09 03:45] VITALS: BP 174/67
[2016-12-09 06:34] LABS: CHOLESTEROL/HDL RATIO 3.5
[2016-12-09 07:00] VITALS: BP 167/82
[2016-12-09] MEDS: INSULIN ASPART 300 UNITS/3 ML INSULN.PEN SQ SCH (08:00)
[2016-12-09] MEDS: GLIMEPIRIDE 2 MG TABLET. PO SCH (08:54)
[2016-12-09] MEDS: ASPIRIN CHEWABLE 81 MG TABLET. PO SCH (08:54)
[2016-12-09] MEDS: ALPRAZolam 0.25 MG TABLET PO SCH (08:55)
[2016-12-09] MEDS: LISINOPRIL 20 MG TABLET PO SCH (08:55)
[2016-12-09] MEDS: VENLAFAXINE 75 MG TABLET. PO SCH (08:55)
[2016-12-09] MEDS: DICLOFENAC SODIUM 25 MG TABLET.DR PO SCH (08:56)
[2016-12-09] MEDS: TRIAMTERENE/HCTZ 37.5/25MG TABLET. PO SCH (08:56)
[2016-12-09] MEDS: LISINOPRIL 40 MG TABLET. PO SCH (08:59)
--- NOTE | 2016-12-09 08:59 | RAD ---
PROCEDURE MRA head without contrast. HISTORY Vision changes and confusion. Posterior reversible encephalopathy syndrome. TECHNIQUE 3D [id number] source images and 3D maximum intensity projection re-formatted images are provided. COMPARISON MRI brain from 1 day earlier. FINDINGS Cavernous carotids are notable for minimal presumed atheromatous irregularity. There is no stenosis or aneurysm. Anterior and middle cerebral arteries are without stenosis or aneurysm. Basilar artery is normal caliber. Posterior cerebral arteries are probably within normal limits. There are bilaterally an area of decreased signal in the P1 segment, symmetric from side to side and at a point of tortuosity, probably flow related artifact rather than a true stenosis given symmetry. If there is strong clinical suspicion/need for further workup for posterior cerebral artery stenoses, CT angiogram or conventional angiogram would be required. IMPRESSION Areas of presumed artifact within the P1 segment of each posterior cerebral artery, symmetric. Short segment stenosis, while less likely, cannot be completely excluded. Electronically signed by: Jose Jaimes MD (December 09, 2016 08:58:09)
[2016-12-09] MEDS ORDERED: amLODIPine BESYLATE 10 MG TABLET PO SCH (09:15)
[2016-12-09] MEDS ORDERED: hydrALAZINE 20 MG/ML VIAL. IVP PRN (09:15)
[2016-12-09] MEDS ORDERED: AMLO10TA4 PO (10:19)
--- NOTE | 2016-12-09 10:23 | PDOC3 ---
Discharge Summary Visit Information Date of Admission: December 07, 2016 Date of Discharge: December 09, 2016 Admitting Diagnosis Comment: Headaches with blurring of vision, acute onset, possibly Migraine, no CVA HTN DM with hyperglycemia Final Diagnosis Problems Medical Problems: (1) Blurry vision, bilateral Status: Acute (2) Headache Status: Acute (3) Migraine Status: Acute Brief Hospital Course Allergies Allergies Coded Allergies Type Severity Reaction Last Updated Verified No Known Drug Allergies 12/07/16 No Vital Signs Vital Signs Date Time Temp Pulse Resp B/P Pulse Ox O2 Delivery O2 Flow Rate FiO2 12/09/16 09:41 75 167/82 12/09/16 09:41 Room Air 12/09/16 07:00 97.6 20 95 97.6 Lab Results Laboratory Tests Test 12/07/16 14:30 12/08/16 03:45 12/09/16 05:20 12/09/16 08:38 White Blood Count 11.2x10^3/uL (4.0-11.0) Red Blood Count 4.10x10^6/uL (3.50-5.40) Hemoglobin 13.4g/dL (12.0-15.5) Hematocrit 40.3% (36.0-47.0) Mean Corpuscular Volume 98fL (79-100) Mean Corpuscular Hemoglobin 33pg (25-35) Mean Corpuscular Hemoglobin Concent 33g/dL (31-37) Red Cell Distribution Width 13.5% (11.5-14.5) Platelet Count 400x10^3/uL (140-400) Neutrophils (%) (Auto) 81% (31-73) Lymphocytes (%) (Auto) 10% (24-48) Monocytes (%) (Auto) 7% (0-9) Eosinophils (%) (Auto) 2% (0-3) Basophils (%) (Auto) 1% (0-3) Neutrophils # (Auto) 9.1x10^3uL (1.8-7.7) Lymphocytes # (Auto) 1.1x10^3/uL (1.0-4.8) Monocytes # (Auto) 0.7x10^3/uL (0.0-1.1) Eosinophils # (Auto) 0.3x10^3/uL (0.0-0.7) Basophils # (Auto) 0.1x10^3/uL (0.0-0.2) Erythrocyte Sedimentation Rate 23 (0-25) Sodium Level 133mmol/L (136-145) Potassium Level 4.3mmol/L (3.5-5.1) Chloride Level 95mmol/L (98-107) Carbon Dioxide Level 27mmol/L (21-32) Anion Gap 11 (6-14) Blood Urea Nitrogen 23mg/dL (7-20) Creatinine 1.3mg/dL (0.6-1.0) Estimated GFR (Cockcroft-Gault) 42.2 Glucose Level 189mg/dL (70-99) Calcium Level 9.5mg/dL (8.5-10.1) Glucose (Fingerstick) 217mg/dL (70-99) 144mg/dL (70-99) Triglycerides Level 194mg/dL (0-150) Cholesterol Level 156mg/dL (0-200) LDL Cholesterol, Calculated 72mg/dL (0-100) VLDL Cholesterol, Calculated 39mg/dL (0-40) Non-HDL Cholesterol Calculated 111mg/dL (0-129) HDL Cholesterol 45mg/dL (40-60) Cholesterol/HDL Ratio 3.5 Laboratory Tests Test 12/09/16 05:20 12/09/16 08:38 Triglycerides Level 194mg/dL (0-150) Cholesterol Level 156mg/dL (0-200) LDL Cholesterol, Calculated 72mg/dL (0-100) VLDL Cholesterol, Calculated 39mg/dL (0-40) Non-HDL Cholesterol Calculated 111mg/dL (0-129) HDL Cholesterol 45mg/dL (40-60) Cholesterol/HDL Ratio 3.5 Glucose (Fingerstick) 144mg/dL (70-99) Brief Hospital Course Ms. Estes is a 56 old F admitted for headaches, neuro assessed, thought could be migraine, Stroke work up neg, BP on high side, Started on PO norvasc. To cont all other home meds and ASA 81 for primary prevention Pt seen and examined COunselling done > 50% dc time time 31 mins Dw family ANd RN Copies of images provided COnsults; neuro Proc: none Discharge Information Condition at Discharge: Improved, Stable Follow Up: Weeks (PCP re BP) Disposition/Orders: D/C to Home Scheduled Alprazolam (Xanax) 3 TAB PO TID (Reported) Diclofenac Sodium (Diclofenac Sodium) 75 MG PO BID (Reported) Ezetimibe/Simvastatin (Vytorin 10-40 Mg Tablet) 1 TAB PO HS (Reported) Glimepiride (Amaryl) 1 TAB PO DAILY (Reported) Lisinopril (Lisinopril) 0.5 TAB PO HS (Reported) Lisinopril (Lisinopril) 40 MG PO DAILY (Reported) Metformin Hcl (Metformin Hcl) 1,000 MG PO BIDWMEALS (Reported) Triamterene/Hydrochlorothiazid (Triamterene-Hctz 37.5-25 Mg Tb) 0.5 TAB PO DAILY (Reported) Venlafaxine Hcl (Effexor Xr) 150 MG PO BID (Reported) Scheduled PRN Hydrocodone Bit/Acetaminophen (Hydrocodone-Apap 10-325 ) 1 TAB PO PRN Q6HRS PRN PRN PAIN (Reported) LULU LIANG MD December 09, 2016 10:23
[2016-12-09 11:00] VITALS: BP 148/72
--- NOTE | 2016-12-09 11:57 | PDOC ---
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 Plan Smoking cessation Aspirin Statin Patient to monitor blood pressure Follow up with me in 3 weeks. Subjective She feels much better, believes her vision has returned to near normal Objective Vital Signs Date Time Temp Pulse Resp B/P Pulse Ox O2 Delivery O2 Flow Rate FiO2 12/09/16 11:29 Room Air 12/09/16 11:00 98.0 81 18 148/72 93 98.0 Intake and Output 12/09/16 07:00 Intake Total 1400 ml Output Total 240 ml Balance 1160 ml Intake Oral 1400 ml Output Urine Total 240 ml # Voids 3 PHYSICAL EXAM Alert. Oriented to time, place and person. PERRL. EOMI. CN: no focal findings. Benign funduscopy Muscle tone: normal. Muscle strength: 5/5 DTR: 2+ Plantar reflex: flexor Gait: not examined in bed. Sensory exam: no abnormal findings. No cerebellar signs elicited. Review of Relevant I have reviewed the following items beto (where applicable) has been applied. Labs Laboratory Tests Test 12/07/16 14:30 12/08/16 03:45 12/09/16 05:20 12/09/16 08:38 White Blood Count 11.2x10^3/uL (4.0-11.0) Red Blood Count 4.10x10^6/uL (3.50-5.40) Hemoglobin 13.4g/dL (12.0-15.5) Hematocrit 40.3% (36.0-47.0) Mean Corpuscular Volume 98fL (79-100) Mean Corpuscular Hemoglobin 33pg (25-35) Mean Corpuscular Hemoglobin Concent 33g/dL (31-37) Red Cell Distribution Width 13.5% (11.5-14.5) Platelet Count 400x10^3/uL (140-400) Neutrophils (%) (Auto) 81% (31-73) Lymphocytes (%) (Auto) 10% (24-48) Monocytes (%) (Auto) 7% (0-9) Eosinophils (%) (Auto) 2% (0-3) Basophils (%) (Auto) 1% (0-3) Neutrophils # (Auto) 9.1x10^3uL (1.8-7.7) Lymphocytes # (Auto) 1.1x10^3/uL (1.0-4.8) Monocytes # (Auto) 0.7x10^3/uL (0.0-1.1) Eosinophils # (Auto) 0.3x10^3/uL (0.0-0.7) Basophils # (Auto) 0.1x10^3/uL (0.0-0.2) Erythrocyte Sedimentation Rate 23 (0-25) Sodium Level 133mmol/L (136-145) Potassium Level 4.3mmol/L (3.5-5.1) Chloride Level 95mmol/L (98-107) Carbon Dioxide Level 27mmol/L (21-32) Anion Gap 11 (6-14) Blood Urea Nitrogen 23mg/dL (7-20) Creatinine 1.3mg/dL (0.6-1.0) Estimated GFR (Cockcroft-Gault) 42.2 Glucose Level 189mg/dL (70-99) Calcium Level 9.5mg/dL (8.5-10.1) Glucose (Fingerstick) 217mg/dL (70-99) 144mg/dL (70-99) Triglycerides Level 194mg/dL (0-150) Cholesterol Level 156mg/dL (0-200) LDL Cholesterol, Calculated 72mg/dL (0-100) VLDL Cholesterol, Calculated 39mg/dL (0-40) Non-HDL Cholesterol Calculated 111mg/dL (0-129) HDL Cholesterol 45mg/dL (40-60) Cholesterol/HDL Ratio 3.5 Laboratory Tests Test 12/09/16 05:20 12/09/16 08:38 Triglycerides Level 194mg/dL (0-150) Cholesterol Level 156mg/dL (0-200) LDL Cholesterol, Calculated 72mg/dL (0-100) VLDL Cholesterol, Calculated 39mg/dL (0-40) Non-HDL Cholesterol Calculated 111mg/dL (0-129) HDL Cholesterol 45mg/dL (40-60) Cholesterol/HDL Ratio 3.5 Glucose (Fingerstick) 144mg/dL (70-99) Medications Current Medications Prochlorperazine Edisylate (Compazine) 10 mg 1X ONCE IV Last administered on 14:54; Start 12/07/16 at 14:45; Stop 12/07/16 at 14:46; Status DC Diphenhydramine HCl (Benadryl) 25 mg 1X ONCE IVP Last administered on 14:54; Start 12/07/16 at 14:45; Stop 12/07/16 at 14:46; Status DC Ketorolac Tromethamine (Toradol) 15 mg 1X ONCE IV Last administered on 16:20; Start 12/07/16 at 16:30; Stop 12/07/16 at 16:31; Status DC Labetalol HCl (Normodyne) 10 mg 1X ONCE IVP Last administered on 12/07/16 16: 20; Start 12/07/16 at 16:30; Stop 12/07/16 at 16:31; Status DC Dexamethasone Sodium Phosphate 10 mg 10 mg 1X ONCE IV Last administered on 12/07 17:06; Start 12/07/16 at 17:00; Stop 12/07/16 at 17:01; Status DC Magnesium Sulfate/ Dextrose (Magnesium Sulfate PREMIX 1GM) 100 ml @ 100 mls/hr 1X ONCE IV Last administered on 12/07/16 17:04; Start 12/07/16 at 17:00; Stop 12/07/16 at 17:59; Status DC Haloperidol Lactate (Haldol) 2 mg 1X ONCE IVP Last administered on 12/07/16 17 :04; Start 12/07/16 at 17:00; Stop 12/07/16 at 17:01; Status DC Lidocaine HCl (Xylocaine-Mpf 1% Vial) 4 ml 1X STAT NEB Last administered on 17:26; Start 12/07/16 at 16:54; Stop 12/07/16 at 16:57; Status DC Ondansetron HCl (Zofran) 4 mg PRN Q8HRS PRN IV NAUSEA/VOMITING; Start 12/07/16 at 18:15; Stop 12/08/16 at 18:14; Status DC Acetaminophen (Tylenol) 650 mg PRN Q4HRS PRN PO FEVER/PAIN Last administered on 12/08/16 05:40; Start 12/07/16 at 18:15; Stop 12/08/16 at 18:14; Status DC Alprazolam (Xanax) 0.5 mg PRN TID PRN PO ANXIETY / AGITATION Last administered on 12/07/16 21:31; Start 12/07/16 at 21:15 Insulin Aspart (Novolog) 0-9 UNITS TIDWMEALS SQ ; Start 12/08/16 at 09:00 Dextrose (Dextrose 50%-Water Syringe) 12.5 gm PRN Q15MIN PRN IV SEE COMMENTS; Start 12/08/16 at 08:15 Metformin HCl (Glucophage) 1,000 mg BIDWMEALS PO Last administered on 12/09/16 08:55; Start 12/08/16 at 11:00 Alprazolam (Xanax) 0.75 mg TID PO Last administered on 12/09/16 08:55; Start at 14:00 Acetaminophen/ Hydrocodone Bitart (Lortab 10/325) 1 tab PRN Q6HRS PRN PO PAIN Last administered on 12/09/16 09:41; Start 12/08/16 at 11:45 Lisinopril (Prinivil) 20 mg HS PO Last administered on 12/08/16 20:42; Start at 21:00 Lisinopril (Prinivil) 40 mg DAILY PO Last administered on 12/09/16 08:59; Start 12/08/16 at 12:30 Triamterene/HCTZ (Maxzide 37.5/ 25mg) 0.5 tab DAILY PO Last administered on 12/09 08:56; Start 12/08/16 at 12:30 Diclofenac Sodium (Voltaren) 75 mg BID PO Last administered on 12/09/16 08:56; Start 12/08/16 at 12:00 EZETIMIBE (Zetia) 10 mg QHS PO Last administered on 12/08/16 20:43; Start at 21:00 Glimepiride (Amaryl) 4 mg DAILY PO Last administered on 12/09/16 08:54; Start 12/08/16 at 12:00 Venlafaxine HCl (Effexor) 150 mg BID PO Last administered on 12/09/16 08:55; Start 12/08/16 at 12:30 Simvastatin (Zocor) 40 mg QHS PO Last administered on 12/08/16 20:43; Start 12/08/16 at 21:00; Stop 12/09/16 at 09:14; Status DC Gadobutrol (Gadavist) 9 mmol 1X ONCE IV Last administered on 12/08/16 13:55; Start 12/08/16 at 13:45; Stop 12/08/16 at 13:46; Status DC Aspirin (Children'S Aspirin) 81 mg DAILYWBKFT PO Last administered on 12/09/16 08:54; Start 12/08/16 at 14:00 Amlodipine Besylate (Norvasc) 10 mg DAILY PO Last administered on 12/09/16 09: 41; Start 12/09/16 at 09:15 Hydralazine HCl (Apresoline) 10 mg PRN Q4HRS PRN IVP ELEVATED BP, SEE COMMENTS ; Start 12/09/16 at 09:15 Atorvastatin Calcium (Lipitor) 20 mg QHS PO ; Start 12/09/16 at 21:00 Active Scripts Active Norvasc (Amlodipine Besylate) 10 Mg Tablet 10 Mg PO DAILY Reported Hydrocodone-Apap 10-325 (Hydrocodone Bit/Acetaminophen) 1 Each Tablet 1 Tab PO PRN Q6HRS PRN Triamterene-Hctz 37.5-25 Mg Tb (Triamterene/Hydrochlorothiazid) 1 Each Tablet 0.5 Tab PO DAILY Diclofenac Sodium 75 Mg Tablet.dr 75 Mg PO BID Xanax (Alprazolam) 0.25 Mg Tablet 3 Tab PO TID Amaryl (Glimepiride) 4 Mg Tablet 1 Tab PO DAILY Effexor Xr (Venlafaxine Hcl) 150 Mg Cap.er.24h 150 Mg PO BID Lisinopril 40 Mg Tablet 40 Mg PO DAILY Lisinopril 40 Mg Tablet 0.5 Tab PO HS Vytorin 10-40 Mg Tablet (Ezetimibe/Simvastatin) 1 Each Tablet 1 Tab PO HS Metformin Hcl 1,000 Mg Tablet 1,000 Mg PO BIDWMEALS Vitals/I & O Vital Sign - Last 24 Hours 12/08/16 12/08/16 12/08/16 12/08/16 12:08 15:00 18:11 19:15 Temp 97.7 98.5 97.7 98.5 Pulse 90 89 89 Resp 18 16 B/P 193/76 193/92 179/66 Pulse Ox 97 97 96 O2 Delivery Room Air Room Air Room Air 12/08/16 12/08/16 12/08/16 12/08/16 19:17 20:00 20:42 23:05 Temp 98.1 98.1 Pulse 89 86 Resp 16 B/P 179/66 170/73 Pulse Ox 97 96 O2 Delivery Room Air Room Air 12/09/16 12/09/16 12/09/16 12/09/16 03:18 03:45 07:00 07:56 Temp 96.6 97.6 96.6 97.6 Pulse 84 75 Resp 16 20 B/P 174/67 167/82 Pulse Ox 95 95 O2 Delivery Room Air Room Air Room Air Room Air 12/09/16 12/09/16 12/09/16 12/09/16 08:59 09:41 09:41 11:00 Temp 98.0 98.0 Pulse 75 75 81 Resp 18 B/P 167/82 167/82 148/72 Pulse Ox 93 O2 Delivery Room Air Room Air 12/09/16 11:29 O2 Delivery Room Air Intake and Output 12/08/16 12/08/16 12/09/16 15:00 23:00 07:00 Intake Total 320 ml 240 ml 840 ml Output Total 240 ml Balance 320 ml 0 ml 840 ml Images MRI and MR venogram reviewed yesterday, MR angiogram reviewed today HERMINIA DIALLO MD December 09, 2016 11:57
[2016-12-09] MEDS ORDERED: ATORVASTATIN CALCIUM 20 MG TABLET PO SCH (21:00)
== END 2016-12-09 11:39 | disposition home or self-care (01) | DRG 103 ==
LOC: ER 13:37 → 6 SOUTH 18:00
PROVIDERS: ADMIT Internal Medicine; ATTEND Internal Medicine
DX: G43.909 Migraine, unspecified, not intractable, without status migrainosus (principal); H53.8 Other visual disturbances; I10 Essential (primary) hypertension; Z90.49 Acquired absence of other specified parts of digestive tract; F10.10 Alcohol abuse, uncomplicated; E11.65 Type 2 diabetes mellitus with hyperglycemia; F41.9 Anxiety disorder, unspecified; Z80.9 Family history of malignant neoplasm, unspecified; F17.210 Nicotine dependence, cigarettes, uncomplicated
CPT/HCPCS: 36415; 70450; 70544; 70553; 80048; 80061; 82947; 85027; 85651; 94640; 96365; 96375; A9585; C8929; J0780; J1100; J1200; J1630; J1815; J1885; J3475; J3490; 92610; 99285-25

== ENCOUNTER → 2016-12-30 | Outpatient (CLI) | payer BC ==
[2016-12-09 11:00] VITALS: BP 148/72
--- NOTE | 2016-12-30 16:44 | KCIC ---
Left breast ultrasound: Reason for examination: Small nodular density on screening mammogram. Comparison is made to mammographic exam dated 11/26/2016. Comparison is also made to previous ultrasound examination of the left breast dated 11/18/2012. Ultrasound examination of the left breast was performed with special attention to the area of mammographic concern and the right axilla. In the 2:00 position 3 cm from the nipple, there is a small hypoechoic circumscribed lesion in parallel orientation measuring approximately 6.5 mm in greatest dimension. This would correspond to site of previous cyst seen and probably represents a complicated cyst. No additional lesions are seen in the breast corresponding with the small lesion seen centrally on mammographic exam. No abnormal appearing lymph nodes are seen in the axilla. IMPRESSION: Small hypoechoic lesion in the 2:00 position which probably represents a complicated cyst. No other focal abnormalities evident in the left breast sonographically. Recommend reevaluation with left breast mammograms and ultrasound in 3 months. BI-RADS Category 3: Probably benign. This patient's information has been entered into a reminder system for the patient to be notified with the results of her examination and a target date for the next mammogram. Electronically signed by: Lexie Kincaid MD (12/30/2016 4:41 PM)
== END | disposition home or self-care (01) ==
LOC: KCIC US 12:42
PROVIDERS: ATTEND Family Medicine
DX: R92.8 Other abnormal and inconclusive findings on diagnostic imaging of breast (principal)
CPT/HCPCS: 76641

== ENCOUNTER 2017-01-19 10:20 | Emergency (ER) | payer BC ==
[~2017-01-19] VITALS: Ht 160 cm; Wt 86.6 kg
[~2017-01-19 10:20] MED LIST changes: +EZET1TAB35 PO; -EZET1TAB5 PO; -HYDR-2672 PO; +HYDR-2766 PO
[2017-01-19 11:26] LABS: BILIRUBIN,URINE NEGATIVE (NEG); GLUCOSE,URINE NEGATIVE (NEG); NITRITE,URINE NEGATIVE (NEG); PH,URINE 6.5; PROTEIN,URINE 100 mg/dL (NEG-TRACE); UROBILINOGEN,URINE 0.2 mg/dL (0.2 mg/dL)
[2017-01-19 11:27] LABS: BASO # 0.1 x10^3/uL (0.0-0.2); BASO % 1 % (0-3); EOS % 2 % (0-3); HEMATOCRIT 38.8 % (36.0-47.0); HEMOGLOBIN 13.3 g/dL (12.0-15.5); LYMPH % 19 % (24-48); MEAN CORPUSCULAR HEMOGLOBIN 33 pg (25-35); MEAN CORPUSCULAR HGB CONC 34 g/dL (31-37); MEAN CORPUSCULAR VOLUME 96 fL (79-100); MONO % 5 % (0-9); NEUT % 72 % (31-73); PLATELET COUNT 346 x10^3/uL (140-400); RED BLOOD COUNT 4.03 x10^6/uL (3.50-5.40); RED CELL DISTRIBUTION WIDTH 13.3 % (11.5-14.5); WHITE BLOOD COUNT 10.5 x10^3/uL (4.0-11.0)
[2017-01-19 11:35] VITALS: BP 137/70
--- NOTE | 2017-01-19 11:46 | PHYS DOC ---
Past Medical History Past Medical History: Diabetes-Type II, Hypertension, Other Additional Past Medical Histor: right leg pain Past Surgical History: Appendectomy, Cholecystectomy, , Other Additional Past Surgical Histo: jaw Alcohol Use: Heavy Additional Information: Pt drinks 1-2 glasses wine daily Drug Use: None Adult General Chief Complaint Chief Complaint: HYPERTENSION HPI HPI Patient is a 56 year old female who presents after she had an episode of diaphoresis at physical therapy. She did not believe she was exerting herself that she just arrived there. She denied any other symptoms such as shortness of breath, chest pain, lightheadedness or dizziness. They checked her blood pressure and it was elevated, the numbers were "high". They contacted patient's primary care doctor's office who recommended she come to the ER. Upon arrival her blood pressure did not remain significantly elevated. She did take her blood pressure medication today. She denies any symptoms. Review of Systems Review of Systems Constitutional: Denies fever or chills [] Eyes: Denies change in visual acuity, redness, or eye pain [] HENT: Denies nasal congestion or sore throat [] Respiratory: Denies cough or shortness of breath [] Cardiovascular: Denies chest pain GI: Denies abdominal pain, nausea, vomiting, bloody stools or diarrhea [] : Denies dysuria or hematuria [] Musculoskeletal: Denies back pain or joint pain [] Integument: Denies rash or skin lesions [] Neurologic: Denies headache, focal weakness or sensory changes [] Allergies Allergies Allergies Coded Allergies Type Severity Reaction Last Updated Verified amlodipine Allergy Intermediate 01/19/17 Yes Physical Exam Physical Exam Constitutional: Well developed, well nourished, no acute distress, non-toxic appearance. [] HENT: Normocephalic, atraumatic, bilateral external ears normal, oropharynx moist, no oral exudates, nose normal. [] Eyes: PERRLA, EOMI, conjunctiva normal, no discharge. [] Neck: Normal range of motion, no tenderness, supple, no stridor. [] Cardiovascular:Heart rate regular with regular rhythm, no murmur [] Lungs & Thorax: Bilateral breath sounds clear to auscultation [] Abdomen: Bowel sounds normal, soft, no tenderness, no masses, no pulsatile masses. [] Skin: Warm, dry, no erythema, no rash. [] Back: No tenderness, no CVA tenderness. [] Extremities: No tenderness, no cyanosis, no clubbing, ROM intact, no edema. [] Neurologic: Alert and oriented X 3, normal motor function, normal sensory function, no focal deficits noted. Cranial nerves II-XII grossly intact Psychologic: Affect normal, judgement normal, mood normal. [] Current Patient Data Vital Signs Vital Signs Date Time Temp Pulse Resp B/P (MAP) Pulse Ox O2 Delivery O2 Flow Rate FiO2 01/19/17 11:35 70 20 137/70 (92) 93 01/19/17 10:27 97.9 Room Air 97.9 Lab Values Laboratory Tests Test 01/19/17 11:00 White Blood Count 10.5 x10^3/uL (4.0-11.0) Red Blood Count 4.03 x10^6/uL (3.50-5.40) Hemoglobin 13.3 g/dL (12.0-15.5) Hematocrit 38.8 % (36.0-47.0) Mean Corpuscular Volume 96 fL (79-100) Mean Corpuscular Hemoglobin 33 pg (25-35) Mean Corpuscular Hemoglobin Concent 34 g/dL (31-37) Red Cell Distribution Width 13.3 % (11.5-14.5) Platelet Count 346 x10^3/uL (140-400) Neutrophils (%) (Auto) 72 % (31-73) Lymphocytes (%) (Auto) 19 % (24-48) L Monocytes (%) (Auto) 5 % (0-9) Eosinophils (%) (Auto) 2 % (0-3) Basophils (%) (Auto) 1 % (0-3) Neutrophils # (Auto) 7.6 x10^3uL (1.8-7.7) Lymphocytes # (Auto) 2.0 x10^3/uL (1.0-4.8) Monocytes # (Auto) 0.6 x10^3/uL (0.0-1.1) Eosinophils # (Auto) 0.2 x10^3/uL (0.0-0.7) Basophils # (Auto) 0.1 x10^3/uL (0.0-0.2) Laboratory Tests 01/19/17 11:00 EKG EKG [] 75 bpm, sinus, normal axis, normal intervals, no ST elevation or depression, nonischemic T waves, interpreted by me Radiology/Procedures Radiology/Procedures [] Course & Med Decision Making Course & Med Decision Making Pertinent Labs and Imaging studies reviewed. (See chart for details) Reviewed patient's prior medical record Patient's exam is reassuring, she is asymptomatic, requesting to leave. Labwork unremarkable. Exam reassuring, blood pressure improved without intervention. Recommended close follow-up with primary care physician, return percussions given. Dragon Disclaimer Dragon Disclaimer This electronic medical record was generated, in whole or in part, using a voice recognition dictation system. Departure Departure Impression: Primary Impression: Hypertension Disposition: 01 HOME, SELF-CARE Condition: STABLE Patient Instructions: Hypertension KAMALJIT CHIU MD Jan 19, 2017 11:46
[2017-01-19 11:52] LABS: BACTERIA,URINE FEW /HPF (0-FEW); SQUAMOUS EPITHELIAL CELL,UR MANY /LPF
--- NOTE | 2017-01-19 12:31 | EKG ---
[facility] [address] [place] [address] Test Date: 2017-01-19 Test Time: 10:33:09 Pat Name: JINA MONTERROSO Department: Room: Gender: F Pool Nurse: : 1960 Requested By: KAMALJIT CHIU Order Number: [id number] Reading MD: Eric Vidal Measurements Intervals [place] Rate: 75 P: 57 WA: 178 QRS: 47 QRSD: 82 T: 56 QT: 390 QTc: 438 Interpretive Statements SINUS RHYTHM Electronically Signed On 01-19-2017 16:56:32 CDT by Eric Vidal
[2017-01-21 15:16] LABS: POTASSIUM ISTAT 4.4 mmol/L (3.5-5.0)
== END 2017-01-19 11:49 | disposition home or self-care (01) ==
LOC: ER 10:20
DX: I10 Essential (primary) hypertension (principal); E11.9 Type 2 diabetes mellitus without complications; F10.10 Alcohol abuse, uncomplicated; Z88.8 Allergy status to other drugs, medicaments and biological substances; Z90.49 Acquired absence of other specified parts of digestive tract
CPT/HCPCS: 36415; 80047; 81001; 85027; 87086; 93005; 99285-25

== ENCOUNTER → 2017-03-17 | Outpatient (CLI) | payer BC ==
--- NOTE | 2017-03-17 10:52 | KCIC ---
- RENAL COMPLETE History: Hypertension TECHNIQUE: Multiple realtime grayscale images were obtained over the kidneys and abdomen. Color doppler and spectral analysis was utilized. Findings: Aortic PSV: 89 cm/s Right Kidney: The Right kidney is small measuring 8.2cm. There is no evidence for mass, nephrolithiasis, or hydronephrosis. The renal vein is patent. Peak Systolic Velocity: 121 cm/s Resistive Index Av.7 Renal-aortic Ratio: 1.4 The wave patterns are normal. There is no evidence for tardus-parvus type wave patterns. Left Kidney: The Left kidney is normal in size measuring 12.1cm. There is no evidence for mass, nephrolithiasis, or hydronephrosis. The renal vein is patent. Peak Systolic Velocity: 101 cm/s Resistive Index Av.7 Renal-aortic Ratio: 1.1 The wave patterns are normal. There is no evidence for tardus-parvus type wave patterns. Interpretation Criteria: Listed in order of greatest positive predictive value. Parameters Suggestive of greater than 60% Stenosis: PSV > 180 cm/sec AT > 70msec AI < 300cm/sec/sec RI > 0.7 R/A Ratio > 3.5 Impression: Small right kidney. There is no sonographic evidence for hemodynamically significant stenosis of the bilateral renal arteries. Electronically signed by: Landon Vazquez MD (03/17/2017 10:49 AM) [place] [id number]
== END | disposition home or self-care (01) ==
LOC: KCIC US 09:23
PROVIDERS: ATTEND Family Medicine
DX: N27.0 Small kidney, unilateral (principal); I10 Essential (primary) hypertension
CPT/HCPCS: 93975

== ENCOUNTER → 2017-04-01 | Outpatient (CLI) | payer BC ==
--- NOTE | 2017-04-01 10:20 | RAD ---
DATE: 04/01/2017 EXAM: DIGITAL DIAGNOSTIC LT, BREAST LEFT HISTORY: Follow-up breast nodule COMPARISON: 12/04/2016 The breast parenchyma shows scattered fibroglandular densities. Breast parenchyma level B. FINDINGS: A tiny nodule seen posteriorly that of the central aspect of left breast on the previous study is less clearly defined on the current cc view and is very poorly visualized on the oblique view. It appears to have regressed. No new or enlarging breast densities are seen. Benign type calcifications are present. No suspicious microcalcifications have developed. Left breast ultrasound, 04/01/2017: A targeted ultrasound exam of the left breast was performed in the area of concern identified on the 12/30/2016 study. Again noted is a 5 x 4 x 6 mm smooth nodule at the 2:00 location located approximately 3 cm from the nipple. There are low level internal echoes. This is probably a complicated cyst. It has shown no significant change. IMPRESSION: 1. The tiny mammographically visualized left breast nodule is stable to perhaps slightly decreased in size since 12/04/2016, suggesting a benign etiology. 2. Unchanged small sonographically visualized nodule at the 2:00 location, probably a complicated cyst.. 3. Follow-up left mammograms and breast ultrasound in 6 months is suggested. BI-RADS CATEGORY: 3 PROBABLY BENIGN FINDING(S)-SHORT INTERVAL FOLLOW-UP SUGGESTED RECOMMENDED FOLLOW-UP: 6M 6 MONTH FOLLOW-UP PQRS compliance statement: Patient information was entered into a reminder system with a target due date for the next mammogram. Mammography is a sensitive method for finding small breast cancers, but it does not detect them all and is not a substitute for careful clinical examination. A negative mammogram does not negate a clinically suspicious finding and should not result in delay in biopsying a clinically suspicious abnormality. "Our facility is accredited by the [employer] Mammography Program."
== END | disposition home or self-care (01) ==
LOC: KCIC MAMMO 09:21
PROVIDERS: ATTEND Family Medicine
DX: N63 Unspecified lump in breast (principal); E11.9 Type 2 diabetes mellitus without complications
CPT/HCPCS: 76641; G0206; 77065

== ENCOUNTER → 2019-02-27 | Outpatient (CLI) | payer BC ==
[~2019-02-27] MED LIST changes: -HYDR-2766 PO; +HYDR-2769 PO; +LISI-130 PO; -LISI40TA PO; -METF-620 PO; +METF10007 PO
--- NOTE | 2019-02-27 14:41 | KCIC ---
Bilateral digital screening mammograms with 3-D tomosynthesis: Reason for examination: Routine screening. Comparison is made to previous studies dated 12/04/2016 and 11/11/2012. Bilateral mammograms in CC and oblique projections were obtained with 2-D imaging and 3-D tomosynthesis imaging on a Siemens Inspiration unit and reviewed on the workstation. Interpretation was made with the benefit of CAD. The skin and nipples show no abnormalities. No abnormal axillary lymph nodes are seen. The breast parenchyma shows scattered fatty and fibroglandular density. (Breast density: Category B.) There are small parenchymal asymmetries seen bilaterally which are stable. There are no new dominant masses, suspicious calcifications or architectural distortion. Impression: No evidence of malignancy. Recommend routine screening. BI-RAD Category 2: Benign. "Our facility is accredited by the [employer] Mammography Program." This patient's information has been entered into a reminder system for the patient to be notified with the results of her examination and a target date for the next mammogram. Electronically signed by: Lexie Kincaid MD (02/27/2019 2:38 PM) [id number]
== END | disposition home or self-care (01) ==
LOC: KCIC MAMMO 12:23
PROVIDERS: ATTEND Family Medicine
DX: Z12.31 Encounter for screening mammogram for malignant neoplasm of breast (principal)
CPT/HCPCS: 77063; 77067

== ENCOUNTER → 2019-05-22 | Outpatient (CLI) | payer BC ==
[~2019-05-22] MED LIST changes: -GLIM1TAB2 PO; +GLIM1TAB3 PO; +REGADENOSON 0.4 MG/5 ML DISP.SYRIN. IV ONE
--- NOTE | 2019-05-22 14:32 | RAD ---
MR#: [id number] Date of Study: 05/22/2019 Ordering Physician: LAURENT MEJIAS, Referring Physician: YAMEL TOWNSEND Tech: RT Javier (R) (N) APPROVED REPORT Test Type: Pharmacological Stress Nurse/Tech: Anamika Howell R.N. Test Indications: pre-op clearance Cardiac History: htn,smoker Medications: Zocor Medical History: See Electronic Medical Record Resting ECG: SR w/inverted T wave in leads AVL, V2. scant ST depression in leads II, V6 Resting Heart Rate: 61 bpm Resting Blood Pressure: 173/70mmHg Pretest Chest Pain: No chest pain Nurse/Tech Notes S1S2, lungs- wheezing in upper lobes Consent: The procedure was explained to the patient in lay terms. Informed consent was witnessed. Teodoro eout was entered into [facility]. History and Stress Test performed by ORIANA Mota, ANATOLY (R) (N) Pharm. Details Pharmacologic stress testing was performed using 0.4mg per 5ml of regadenoson given intravenously ove r 7-10 seconds. Stress Symptoms slight SOA, h/a POST EXERCISE Reason for Termination: Infusion complete Max HR: 77 bpm Max Blood Pressure: 177/70mmHg Blood Pressure response to exercise: Normal blood pressure response during stress. Heart Rate response to exercise: wnl Chest Pain: No. Arrhythmia: No. ST Change: No. INTERPRETATION Stress EKG Conclusion: No evidence of stress induced EKG changes. Imaging Protocol IMAGE PROTOCOL: Rest Tc-99m/stress Tc-99m 1 day Rest: Stress: Viability: Radiopharm.Tc99m ImcqixeqzSl92m Sestamibi Yqmu53wNg 33mCi Duration 15min. 15min. Img Date 05/22/2019 05/22/2019 Inj-Img Cfmw77jad. 60min. Rest Admin Site:IV - Left AntecubitalAdministrator:ORIANA Mota, ANATOLY (R)(N) Stress Admin Site: IV - Left AntecubitalAdministrator: RT Leann HerreraR)(N) STRESS DATA End Diast. Vol.87.0mlAv. Heart Rate63.0bpm End Syst. Vol.27.0mlCO Index BSA0.0L/min Myocardial Kfus676.0gEject. Ihjcivxk67.0% Stress Rates Pk. Fill Rate1.53EDV/secLVtime Pk. Fill 169.13msec Pk. Empty Rate3.85ESV/secLVtime Pk. Xpepi772.76msec 1/3 Pk. Fill1.10EDV/sec Stress Scores Regional WT0.00Summed WT0.00 Regional WM0.00Summed WM1.00 The rest and stress images show normal perfusion, normal contraction and thickening. LV Perf. Quant 17 Seg. SSS1.00 17 Seg. SRS0.00 17 Seg. SDS1.00 Stress Defect Extent (% LAD)0.00Rest Defect Extent (% LAD)0.00Rev. Defect Extent (% LAD)0.00 Stress Defect Extent (% LCX) 1.30Rest Defect Extent (% LCX)0.00Rev. Defect Extent (% LCX)0.00 Stress Defect Extent (% RCA)0.00Rest Defect Extent (% RCA)0.00Rev. Defect Extent (% RCA)0.00 Stress Defect Extent (% LUPE)0.20Rest Defect Extent (% LUPE)0.00Rev. Defect Extent (% LUPE)0.00 Other Information Quality:Good Risk Assessment: Low Risk Conclusion 1. No evidence of EKG changes with stress testing. 2. Normal perfusion at stress/rest. 3. Low risk study. 4. EF > 60%. Signed by : Eric Vidal, Electronically Approved : 05/22/2019 14:31:59
== END | disposition home or self-care (01) ==
LOC: NM 09:37
PROVIDERS: ATTEND Internal Medicine Cardiovascular Disease
DX: Z01.818 Encounter for other preprocedural examination (principal); I10 Essential (primary) hypertension; R07.9 Chest pain, unspecified; Z87.891 Personal history of nicotine dependence
CPT/HCPCS: 78452; 93017; A9500; J2785

== ENCOUNTER → 2019-08-21 | Outpatient (CLI) | payer BC ==
[~2019-08-21] MED LIST changes: +ASPI325T8 PO; -GLIM1TAB3 PO; +GLIM1TAB7 PO; +HYDR-2765 PO; +LOSA-73 PO; +METF100010 PO; +METO-313 PO; +MIRT15TA3 PO; -REGADENOSON 0.4 MG/5 ML DISP.SYRIN. IV ONE; +TRIA1TAB2 PO
[2019-08-21 09:29] LABS: BASO % 0 % (0-3); EOS # 0.4 x10^3/uL (0.0-0.7); EOS % 4 % (0-3); HEMATOCRIT 39.2 % (36.0-47.0); HEMOGLOBIN 13.3 g/dL (12.0-15.5); LYMPH # 3.2 x10^3/uL (1.0-4.8); LYMPH % 28 % (24-48); MEAN CORPUSCULAR HEMOGLOBIN 34 pg (25-35); MEAN CORPUSCULAR HGB CONC 34 g/dL (31-37); MEAN CORPUSCULAR VOLUME 100 fL (79-100); MONO # 0.7 x10^3/uL (0.0-1.1); MONO % 6 % (0-9); NEUT # 6.8 x10^3/uL (1.8-7.7); NEUT % 61 % (31-73); PLATELET COUNT 439 x10^3/uL (140-400); RED BLOOD COUNT 3.94 x10^6/uL (3.50-5.40); WHITE BLOOD COUNT 11.2 x10^3/uL (4.0-11.0)
[2019-08-21 09:40] LABS: ALBUMIN 3.7 g/dL (3.4-5.0); CALCIUM 9.5 mg/dL (8.5-10.1); GFR 56.6; POTASSIUM 4.7 mmol/L (3.5-5.1)
[2019-08-21 09:41] LABS: PROTHROMBIN TIME PATIENT 10.6 SEC (11.7-14.0)
--- NOTE | 2019-08-21 12:56 | RAD ---
EXAM: Chest, 2 views. HISTORY: Hypertension. COMPARISON: None. FINDINGS: 2 views of the chest are obtained. There is no infiltrate, pleural effusion or pneumothorax. The heart is normal in size. There is cervical spinal fusion instrumentation. IMPRESSION: No acute pulmonary finding. Electronically signed by: Lona Casanova MD (08/21/2019 12:53 PM) [place] [id number]
[2019-08-21 23:07] LABS: HEMOGLOBIN A1C 5.9 % (4.8-5.6)
== END | disposition home or self-care (01) ==
LOC: SURGPAT 12:23
PROVIDERS: ATTEND Orthopaedic Surgery
DX: Z01.818 Encounter for other preprocedural examination (principal); M16.11 Unilateral primary osteoarthritis, right hip; Z88.8 Allergy status to other drugs, medicaments and biological substances
CPT/HCPCS: 36415; 71046; 80048; 82040; 82306; 83036; 85025; 85610; 85651; 85730; 87641

== ENCOUNTER 2019-09-05 10:39 | Inpatient (IN) | payer BC ==
[~2019-09-05] VITALS: Ht 161.9 cm; Wt 74.8 kg
[2019-09-05] VITALS (7 sets, daily range): BP systolic 130–174; BP diastolic 52–78
[~2019-09-05 10:39] MED LIST changes: +ACETAMINOPHEN 500 MG TABLET PO PRN; +GABAPENTIN 300 MG CAPSULE. PO PRN; +IV RINGERS,LACTATED 1000ML 1,000 ML IV SCH; +LIDOCAINE 1% PF 2 ML VIAL. ID PRN; +MELOXICAM 7.5 MG TABLET PO PRN; +ONDANSETRON PF 4 MG/2 ML VIAL. IV PRN; +PROCHLORPERAZINE 10 MG/2 ML VIAL. IV PRN; +TRANEXAMIC ACID 1,000 MG in IV NS 50ML -- 1ST BAG INJ ONE; +TRANEXAMIC ACID 1,000 MG in IV NS 50ML -- 2ND BAG INJ ONE; +fentaNYL PF VIAL 100 MCG/2 ML VIAL IV PRN
[2019-09-05] MEDS ORDERED: fentaNYL PF VIAL 100 MCG/2 ML VIAL ONE (11:18)
[2019-09-05] MEDS ORDERED: MIDAZOLAM HCL/PF 2 MG/2 ML VIAL. ONE (11:18)
[2019-09-05] MEDS ORDERED: SEVOFLURANE > 120 MINUTES. IH ONE (11:18)
[2019-09-05] MEDS ORDERED: ROCURONIUM 50 MG/5 ML VIAL. ONE (11:18)
[2019-09-05] MEDS ORDERED: NEOSTIGMINE METHYLSULFATE 5 MG/5 ML SYRINGE. ONE (11:18)
[2019-09-05] MEDS ORDERED: PROPOFOL 20 ML IV ONE (11:19)
[2019-09-05] MEDS ORDERED: GLYCOPYRROLATE 1 MG/5 ML VIAL. ONE (11:19)
[2019-09-05] MEDS ORDERED: ONDANSETRON PF 4 MG/2 ML VIAL. ONE (11:19)
[2019-09-05] MEDS ORDERED: LIDOCAINE 2% PF 5 ML VIAL. ONE (11:19)
[2019-09-05] MEDS ORDERED: DEXAMETHASONE SOD PHOS 4 MG/ML VIAL ONE (11:19)
[2019-09-05 11:53] LABS: PROTHROMBIN TIME PATIENT 12.3 SEC (11.7-14.0)
[2019-09-05] MEDS: INSULIN LISPRO 100 UNIT/ML 3ML VIAL for OP,RR ONLY. SQ PRN ×2 (12:08→15:57)
[2019-09-05] MEDS ORDERED: CALCIUM CARBONATE 500 MG TAB.CHEW PO PRN (13:00)
[2019-09-05] MEDS ORDERED: fentaNYL PF VIAL 100 MCG/2 ML VIAL IV PRN (13:00)
[2019-09-05] MEDS ORDERED: PROCHLORPERAZINE 5 MG TABLET. PO PRN (13:00)
[2019-09-05] MEDS ORDERED: diphenhydrAMINE 50 MG/ML VIAL IV PRN (13:00)
[2019-09-05] MEDS ORDERED: ZOLPIDEM 5 MG TABLET. PO PRN (13:00)
[2019-09-05] MEDS ORDERED: 0.9 % SODIUM CHLORIDE 10 ML DISP.SYRIN. IV PRN (13:00)
[2019-09-05] MEDS ORDERED: MORPHINE SULFATE 4 MG/ML VIAL. IV PRN (13:00)
[2019-09-05] MEDS ORDERED: DEXTROSE 50% 25 GM / 50ML DISP.SYRIN. IV PRN (13:00)
[2019-09-05] MEDS ORDERED: IV DEXTROSE 5% 250 ML BAG. IV PRN (13:00)
--- NOTE | 2019-09-05 13:10 | HP ---
ADMIT DATE: 09/05/2019 CHIEF COMPLAINT: Right hip pain. HISTORY OF PRESENT ILLNESS: The patient is actually familiar to me from a previous evaluation for severe right hip pain, seems to be more muscular in origin at that time and it has been very progressive in the interim and was complicated by some difficulties with hypertension and difficulty participating with physical therapy. The blood pressure is now under much better control, but the hip unfortunately, despite therapy and other nonoperative measures is giving her increasingly severe symptoms impacting her activities of daily living and any walking hurts severely. She has been on narcotic pain medicines as a result and has severe pain in the right groin area radiating to the right upper thigh. PAST MEDICAL HISTORY: Significant for hypertension, hypercholesterolemia, well controlled diabetes mellitus, spinal stenosis. PAST SURGICAL HISTORY: Appendectomy, cholecystectomy, neck surgery, and surgery. FAMILY HISTORY: Father is of lung cancer. Mother alive and healthy. They have a family history of sickle cell disease and some bleeding problems, lung disease, stroke, depression, arthritis and some Alzheimer's. SOCIAL HISTORY: She is a current smoker, smokes only about 6-10 cigarettes a day. Social consumption of alcohol. No drug use. and lives with her spouse. MEDICATIONS: List is reviewed. ALLERGIES: INCLUDE AMLODIPINE AND CATAPRES. REVIEW OF SYSTEMS: Aside from the severe debilitating right hip pain, has no recent febrile illness, chest pain, shortness of breath or other constitutional symptoms. Diabetes, remains well controlled with a hemoglobin A1c in the high 5 range. PHYSICAL EXAMINATION: GENERAL: A pleasant, cooperative 59-year-old female, alert and oriented, no acute distress. VITAL SIGNS: Per admission sheet. HEENT: Atraumatic, normocephalic. HEART: Regular rate and rhythm. LUNGS: Clear to auscultation bilaterally. ABDOMEN: Benign. EXTREMITIES: Examination of the right hip shows limited range of motion and pain on her already limited range of motion extremes. No leg length discrepancy is noted. Negative straight leg raise. No tenderness over the trochanteric bursa on either side. Normal examination of the contralateral hip, normal alignment, stability of bilateral knees and ankles. IMAGING: X-rays show severe degenerative change with lack of joint space superiorly and significant cystic change, both on the femoral head and acetabulum. IMPRESSION: Degenerative right hip. TREATMENT PLAN: I previously gone over with her in clinic and reviewed today risks, benefits, postoperative course of total hip arthroplasty, the possibility of leg length inequality, infection, nerve or blood vessel damage, premature wear or loosening, instability, medical or other anesthetic complications among others. All her questions were answered. She wishes to proceed with surgical evaluation and treatment today. GISELLE PIERCE MD DR: PHOEBE/conor JOB#: [id number] / [id number]
[2019-09-05] MEDS: ALPRAZolam 0.25 MG TABLET PO SCH ×2 (14:00→20:39)
[2019-09-05] MEDS: MORPHINE SULFATE 5 MG, KETOROLAC 30MG VIAL 30 MG, ROPIVacaine 0.5% PF 60 ML, EPINEPHrin... INT ART ONE ×10 (14:07→14:49)
[2019-09-05] MEDS: VENLAFAXINE 50 MG TABLET. PO SCH ×2 (15:00→20:41)
[2019-09-05] MEDS: TRIAMTERENE/HCTZ 37.5/25MG TABLET. PO SCH (15:00)
[2019-09-05] MEDS: SENNOSIDES/DOCUSATE 8.6/50MG TABLET. PO SCH (15:00)
[2019-09-05] MEDS: GLIMEPIRIDE 2 MG TABLET. PO SCH (15:00)
[2019-09-05] MEDS: MULTIVITAMIN with MINERAL TABLET. PO SCH (15:00)
--- NOTE | 2019-09-05 15:21 | PDOC4 ---
Operative Note Operative Note Date of surgery: 08/28/2019 Preoperative diagnosis: Degenerative joint disease right hip Postoperative diagnosis: Same Operative procedure: Right total hip arthroplasty Surgeon: Juan Alberto Assist: Dominic hernandes Anesthesia: Gen. Estimated blood loss: 100 mL Complications: None Specimens: Femoral head to pathology Drains: Hemovac drain and intra-articular pain catheter right hip Operative indications: Please see my orthopedic clinic notes and preoperative history and physical for detailed operative indications. Operative text: Patient was identified procedure verified patient placed in the supine position on the operating table. After adequate amounts of general anesthesia were administered she was placed right side up using the Stulberg hip positioner in the decubitus position all bony prominences were well-padded and the right hip was prepped and draped in standard sterile fashion. After timeout was performed patient procedure identified and verified a curvilinear incision was made centered over the greater trochanter with a standard posterior approach to the hip. The iliotibial band and gluteal fascia were split in line with their fibers Charnley retractor was placed external rotators were divided from their insertion hip capsule was split in a T fashion and the hip was dislocated femoral neck cut made per templating with the femoral cutting guide and femoral head was sized at a size 45 and noted to be severely arthritic. The acetabulum was exposed and the residual labrum and contents of the fovea were excised and reaming was carried out up to a size 51 and a size 52 3-hole hemispherical [employer] sticktight coated shell was impacted in place in proper version and a 35 mm screw placed superiorly with excellent bite. A standard 36 mm inner diameter liner was impacted into place after thorough irrigation carried out normal saline solution femur was then prepared with reaming and broaching up to a size 10 calcar reaming was carried out and a standard offset neck was used to re-create her leg length and offset with a +0 trial 36 mm head initially. Trial components were removed thorough irrigation carried out normal saline solution and a size 10 Synergy porous-coated femoral component standard offset was impacted into place but sunk about 2-1/2-3 mm lower than the broach and there was a small irregular crack anteriorly although I suspect that this was due to the thin anterior cortex in the area I elected to reinforce the area with a 2 mm cable which was tensioned from the calcar area around the greater tuberosity. The femoral stem was solidly placed and due to the slight inferior deviation from the initial trialing and Oxinium +4 36 mm femoral head was impacted to engage the Price taper and reduced and she was found to have excellent stability full range of motion and leg length reproduced closely as possible with measuring to the other leg noting just a few millimeters increased leg length. Thorough irrigation again carried out normal saline solution Hemovac drain and pain catheter were placed pain catheter mixture was injected throughout the joint capsule fascia was closed with interrupted #5 Ethibond suture reinforced with #1 PDS strata fix subcutaneous closure with buried Vicryl suture subcuticular 3-0 Monocryl strata fix suture was used on the skin. A lesly dressing with Acticoat was placed and patient was returned to recovery room in stable condition having tolerated procedure well. Dominic hernandes was present for the procedure and assisted in the prepping draping retraction and skin closure GISELLE PIERCE MD Sep 05, 2019 15:21
[2019-09-05] MEDS: fentaNYL PF VIAL 100 MCG/2 ML VIAL IV PRN ×2 (15:33→15:43)
[2019-09-05] MEDS: MORPHINE SULFATE 2 MG/ML VIAL. IV PRN ×2 (15:48→15:58)
[2019-09-05] MEDS ORDERED: WARFARIN 7.5 MG TABLET. PO ONE (16:00)
--- NOTE | 2019-09-05 16:08 | RAD ---
EXAM: Pelvis and right hip, 3 views. HISTORY: Arthroplasty. COMPARISON: None. FINDINGS: A frontal view of the pelvis and 2 views of the right hip are obtained. There is a right hip arthroplasty with proximal femoral cerclage wire overlying expected position. There is surrounding soft tissue gas and there is a drain due to recent surgery. IMPRESSION: Right hip arthroplasty in expected position. Electronically signed by: Lona Casanova MD (09/05/2019 4:05 PM) [facility]
[2019-09-05] MEDS: HYDROmorphone 2 MG/ML VIAL IV PRN ×4 (16:17→16:36)
[2019-09-05] MEDS: INSULIN LISPRO 300 UNITS/3 ML VIAL. SQ SCH (17:00)
--- NOTE | 2019-09-05 17:38 | NUR ---
received from recovery. she is alert and oriented on 1.5 per nasal cannula. he has god sensation, motion and pulses bilateral lower extremities.hemovac ,iac and lesly intact. several family members at bedside. denies nausea; she is rating her pain a "5".
[2019-09-05] MEDS: ONDANSETRON PF 4 MG/2 ML VIAL. IV SCH (18:00)
[2019-09-05] MEDS: ONDANSETRON ODT 4 MG TAB.RAPDIS. PO SCH (18:00)
[2019-09-05] MEDS: KETOROLAC 30MG VIAL 30 MG, BUPIVACAINE MPF 0.25% 20 ML, EPINEPHrine 0.5 MG in TOTAL VOL... INT ART SCH (18:11)
[2019-09-05] MEDS: IV NORMAL SALINE 1000ML BAG 1,000 ML IV SCH ×2 (18:12→20:47)
[2019-09-05] MEDS: FERROUS SULFATE 325 MG TABLET. PO SCH (18:18)
[2019-09-05] MEDS: EZETIMIBE 10 MG TABLET. PO SCH (20:37)
[2019-09-05] MEDS: metFORMIN XR 500 MG TAB.ER.24H PO SCH (20:37)
[2019-09-05] MEDS: SIMVASTATIN 40 MG TABLET. PO SCH (20:37)
[2019-09-05] MEDS: LOSARTAN POTASSIUM 50 MG TABLET. PO SCH (20:40)
[2019-09-05] MEDS: METOPROLOL TART IMMED RELEASE 50 MG TABLET. PO SCH (20:40)
[2019-09-05] MEDS: oxyCODONE IR 5 MG TABLET PO PRN (20:41)
[2019-09-06] VITALS (7 sets, daily range): BP systolic 145–192; BP diastolic 61–90
[2019-09-06] MEDS: oxyCODONE IR 5 MG TABLET PO PRN ×4 (01:54→21:31)
[2019-09-06 05:18] LABS: PROTHROMBIN TIME PATIENT 12.5 SEC (11.7-14.0)
[2019-09-06 05:55] LABS: HEMATOCRIT 32.9 % (36.0-47.0); HEMOGLOBIN 10.9 g/dL (12.0-15.5)
[2019-09-06] MEDS: KETOROLAC 30MG VIAL 30 MG, BUPIVACAINE MPF 0.25% 20 ML, EPINEPHrine 0.5 MG in TOTAL VOL... INT ART SCH (05:55)
[2019-09-06] MEDS: traMADol 50 MG TABLET PO SCH ×4 (05:55→23:54)
[2019-09-06] MEDS: ONDANSETRON ODT 4 MG TAB.RAPDIS. PO SCH ×3 (05:57→12:00)
[2019-09-06] MEDS: ONDANSETRON PF 4 MG/2 ML VIAL. IV SCH ×3 (05:57→12:00)
[2019-09-06] MEDS ORDERED: MAGNESIUM HYDROXIDE 2,400 MG/30 ML ORAL.SUSP. PO PRN (06:00)
[2019-09-06] MEDS ORDERED: GABAPENTIN 100 MG CAPSULE. PO SCH (06:00)
--- NOTE | 2019-09-06 07:44 | PDOC ---
ORTHO PROGRESS NOTES Subjective Patient states feeling ok this morning with moderate pain. Post-op Day: 1 Procedure R CHLOÉ Vitals Vital Signs Date Time Temp Pulse Resp B/P (MAP) Pulse Ox O2 Delivery O2 Flow Rate FiO2 09/06/19 06:55 18 96 Room Air 09/06/19 06:45 64 156/74 (101) 09/06/19 05:59 98.2 98.2 09/05/19 21:41 1.5 Labs Laboratory Tests Test 09/05/19 11:25 09/05/19 11:42 09/05/19 13:08 09/05/19 15:37 Prothrombin Time 12.3 SEC (11.7-14.0) Prothromb Time International Ratio 0.9 (0.8-1.1) Activated Partial Thromboplast Time 26 SEC (24-38) Glucose (Fingerstick) 162 mg/dL (70-99) 118 mg/dL (70-99) 129 mg/dL (70-99) Test 09/05/19 20:35 09/06/19 04:15 09/06/19 06:43 Glucose (Fingerstick) 200 mg/dL (70-99) 133 mg/dL (70-99) Hemoglobin 10.9 g/dL (12.0-15.5) Hematocrit 32.9 % (36.0-47.0) Mean Corpuscular Hemoglobin Concent 33 g/dL (31-37) Prothrombin Time 12.5 SEC (11.7-14.0) Prothromb Time International Ratio 1.0 (0.8-1.1) Laboratory Tests Test 09/05/19 11:25 09/05/19 11:42 09/05/19 13:08 09/05/19 15:37 Prothrombin Time 12.3 SEC (11.7-14.0) Prothromb Time International Ratio 0.9 (0.8-1.1) Activated Partial Thromboplast Time 26 SEC (24-38) Glucose (Fingerstick) 162 mg/dL (70-99) 118 mg/dL (70-99) 129 mg/dL (70-99) Test 09/05/19 20:35 09/06/19 04:15 09/06/19 06:43 Glucose (Fingerstick) 200 mg/dL (70-99) 133 mg/dL (70-99) Hemoglobin 10.9 g/dL (12.0-15.5) Hematocrit 32.9 % (36.0-47.0) Mean Corpuscular Hemoglobin Concent 33 g/dL (31-37) Prothrombin Time 12.5 SEC (11.7-14.0) Prothromb Time International Ratio 1.0 (0.8-1.1) Notes Patient sitting up in bed awake and alert. Assessment and Plan POD # 1 S/P R CHLOÉ motor and sensation intact distally dressing dry and intact encourage fluids and IS PT today CLEOPATRA MENDEZ APRN Sep 06, 2019 07:43
[2019-09-06] MEDS: INSULIN LISPRO 300 UNITS/3 ML VIAL. SQ SCH ×3 (08:00→16:58)
[2019-09-06] MEDS: metFORMIN XR 500 MG TAB.ER.24H PO SCH ×2 (08:51→20:44)
[2019-09-06] MEDS: TRIAMTERENE/HCTZ 37.5/25MG TABLET. PO SCH (08:51)
[2019-09-06] MEDS: METOPROLOL TART IMMED RELEASE 50 MG TABLET. PO SCH ×2 (08:52→20:42)
[2019-09-06] MEDS: ACETAMINOPHEN 500 MG TABLET PO SCH ×3 (08:52→20:43)
[2019-09-06] MEDS: FERROUS SULFATE 325 MG TABLET. PO SCH ×2 (08:52→16:57)
[2019-09-06] MEDS: MELOXICAM 7.5 MG TABLET PO SCH (08:53)
[2019-09-06] MEDS: ALPRAZolam 0.25 MG TABLET PO SCH ×3 (08:53→20:44)
[2019-09-06] MEDS: MIRTAZAPINE 15 MG TABLET PO SCH (08:53)
[2019-09-06] MEDS: VENLAFAXINE 50 MG TABLET. PO SCH ×3 (08:53→21:24)
[2019-09-06] MEDS: MULTIVITAMIN with MINERAL TABLET. PO SCH (08:53)
[2019-09-06] MEDS: LOSARTAN POTASSIUM 50 MG TABLET. PO SCH ×2 (08:54→20:43)
[2019-09-06] MEDS: GLIMEPIRIDE 2 MG TABLET. PO SCH (08:54)
[2019-09-06] MEDS: SENNOSIDES/DOCUSATE 8.6/50MG TABLET. PO SCH (08:56)
--- NOTE | 2019-09-06 11:55 | NUR ---
Pharmacy Warfarin Dosing Note S: Pharmacy consulted to assist with anticoagulation therapy started 09/05/19 O: JINA MONTERROSO is a 59 year old F with CHLOÉ LABS: Last INR: 1.0 Last HGB: 10.9 Last HCT: 32.9 Last dose of 7.5 mg given on 09/05/19 at 1817 Ongoing Drug Interactions: MOBICSANDRAEXOR A:INR of 1.0 is below desired range. Target range for this patient is: 1.6 - 2.5 P: Warfarin dose: 5 mg Today at 1600 Bridge Therapy: None Next INR due 09/07/19 AM Pharmacy anticoagulation service will continue to follow. LIBRA COLLAZO [facility], 09/06/19 0284
[2019-09-06] MEDS ORDERED: ONDANSETRON ODT 4 MG TAB.RAPDIS. PO PRN (12:00)
[2019-09-06] MEDS ORDERED: ONDANSETRON PF 4 MG/2 ML VIAL. IV PRN (12:00)
[2019-09-06] MEDS ORDERED: BISACODYL 10 MG SUPP.RECT. PR PRN (16:00)
[2019-09-06] MEDS ORDERED: WARFARIN 5 MG TABLET. PO ONE (16:00)
[2019-09-06] MEDS: EZETIMIBE 10 MG TABLET. PO SCH (20:42)
[2019-09-06] MEDS: SIMVASTATIN 40 MG TABLET. PO SCH (20:42)
[2019-09-07] MEDS: ACETAMINOPHEN 500 MG TABLET PO SCH ×4 (04:23→20:58)
[2019-09-07 04:39] LABS: HEMATOCRIT 32.1 % (36.0-47.0); HEMOGLOBIN 10.9 g/dL (12.0-15.5)
[2019-09-07 04:47] LABS: PROTHROMBIN TIME PATIENT 14.1 SEC (11.7-14.0)
[2019-09-07 05:57] VITALS: BP 154/78
[2019-09-07] MEDS: traMADol 50 MG TABLET PO SCH ×4 (06:22→23:55)
[2019-09-07] MEDS: INSULIN LISPRO 300 UNITS/3 ML VIAL. SQ SCH ×3 (08:00→17:00)
[2019-09-07] MEDS: SENNOSIDES/DOCUSATE 8.6/50MG TABLET. PO SCH (09:00)
[2019-09-07] MEDS: MULTIVITAMIN with MINERAL TABLET. PO SCH (09:00)
[2019-09-07] MEDS: GLIMEPIRIDE 2 MG TABLET. PO SCH (09:01)
[2019-09-07] MEDS: MELOXICAM 7.5 MG TABLET PO SCH (09:01)
[2019-09-07] MEDS: FERROUS SULFATE 325 MG TABLET. PO SCH ×2 (09:01→17:31)
[2019-09-07] MEDS: metFORMIN XR 500 MG TAB.ER.24H PO SCH ×2 (09:02→20:55)
[2019-09-07] MEDS: MIRTAZAPINE 15 MG TABLET PO SCH (09:06)
[2019-09-07] MEDS: TRIAMTERENE/HCTZ 37.5/25MG TABLET. PO SCH (09:06)
[2019-09-07] MEDS: LOSARTAN POTASSIUM 50 MG TABLET. PO SCH ×2 (09:07→20:57)
[2019-09-07] MEDS: ALPRAZolam 0.25 MG TABLET PO SCH ×3 (09:07→20:55)
[2019-09-07] MEDS: VENLAFAXINE 50 MG TABLET. PO SCH ×3 (09:10→20:56)
[2019-09-07] MEDS: METOPROLOL TART IMMED RELEASE 50 MG TABLET. PO SCH ×2 (09:12→20:56)
[2019-09-07] MEDS: oxyCODONE IR 5 MG TABLET PO PRN ×3 (09:57→21:16)
--- NOTE | 2019-09-07 10:58 | NUR ---
Pharmacy Warfarin Dosing Note S:Pharmacy consulted to assist with anticoagulation therapy started 09/05/19 with target INR: 1.6 - 2.5 O:JINA MONTERROSO is a 59 year old F with CHLOÉ LABS: Last INR: 1.1 Last HGB: 10.9 Last HCT: 32.1 Last PLT: -- Last dose of 5 mg given on 09/06/19 at 1658 Vitamin K given: N Drug Interaction Changes: Same Interacting Drug Ongoing Drug Interactions: MOBSONY EDWARDS A:INR of 1.1 is below desired range. Target range for this patient is: 1.6 - 2.5 P: Warfarin dose: 5 mg Today at 1600 Bridge Therapy: None Next INR due 09/08/19. Pharmacy anticoagulation service will continue to follow. [facility], 09/07/19 1054
[2019-09-07] MEDS: IV NORMAL SALINE 1000ML BAG 1,000 ML IV SCH (12:34)
[2019-09-07] MEDS ORDERED: WARFARIN 5 MG TABLET. PO ONE (16:00)
--- NOTE | 2019-09-07 17:08 | PDOC ---
ORTHO PROGRESS NOTES Subjective Patient resting sitting up in chair legs straight having controlled pain per her report. Number of family present. Post-op Day: 2 Procedure RIGHT CHLOÉ Vitals Vital Signs Date Time Temp Pulse Resp B/P (MAP) Pulse Ox O2 Delivery O2 Flow Rate FiO2 09/07/19 14:57 Room Air 09/07/19 09:12 69 176/84 09/07/19 06:22 3 94 09/07/19 05:57 98.1 98.1 Labs Laboratory Tests Test 09/05/19 20:35 09/06/19 04:15 09/06/19 06:43 09/06/19 11:59 Glucose (Fingerstick) 200 mg/dL (70-99) 133 mg/dL (70-99) 147 mg/dL (70-99) Hemoglobin 10.9 g/dL (12.0-15.5) Hematocrit 32.9 % (36.0-47.0) Mean Corpuscular Hemoglobin Concent 33 g/dL (31-37) Prothrombin Time 12.5 SEC (11.7-14.0) Prothromb Time International Ratio 1.0 (0.8-1.1) Test 09/06/19 16:51 09/06/19 20:26 09/07/19 04:20 09/07/19 06:14 Glucose (Fingerstick) 97 mg/dL (70-99) 129 mg/dL (70-99) 101 mg/dL (70-99) Hemoglobin 10.9 g/dL (12.0-15.5) Hematocrit 32.1 % (36.0-47.0) Mean Corpuscular Hemoglobin Concent 34 g/dL (31-37) Prothrombin Time 14.1 SEC (11.7-14.0) Prothromb Time International Ratio 1.1 (0.8-1.1) Test 09/07/19 11:56 09/07/19 16:53 Glucose (Fingerstick) 144 mg/dL (70-99) 99 mg/dL (70-99) Laboratory Tests Test 09/06/19 20:26 09/07/19 04:20 09/07/19 06:14 09/07/19 11:56 Glucose (Fingerstick) 129 mg/dL (70-99) 101 mg/dL (70-99) 144 mg/dL (70-99) Hemoglobin 10.9 g/dL (12.0-15.5) Hematocrit 32.1 % (36.0-47.0) Mean Corpuscular Hemoglobin Concent 34 g/dL (31-37) Prothrombin Time 14.1 SEC (11.7-14.0) Prothromb Time International Ratio 1.1 (0.8-1.1) Test 09/07/19 16:53 Glucose (Fingerstick) 99 mg/dL (70-99) Notes Comfortable appearance in no distress, A&Ox3. Calf nontender and soft bilaterally. DP pulses 2+ bilat. Right hip moderate tenderness, dressing dry, no excess drainage. KUSHAL dressing in place with pump. No distal extremity edema. Problems: (1) S/P hip replacement (2) Degenerative joint disease of right hip Assessment and Plan POD # 2 S/P R CHLOÉ motor and sensation intact distally dressing dry and intact encourage fluids and IS PT today and tomorrow Anticipate discharge to home tomorrow. Discharge planning for outpatient PT/Meds. Problem Qualifiers (1) S/P hip replacement: Laterality: right Qualified Codes: Z96.641 - Presence of right artificial hip joint (2) Degenerative joint disease of right hip: Osteoarthritis type: primary Qualified Codes: M16.11 - Unilateral primary osteoarthritis, right hip CLEOPATRA KAY Jr. PAC Sep 07, 2019 5:08 pm
[2019-09-07 18:31] VITALS: BP 165/79
[2019-09-07] MEDS: EZETIMIBE 10 MG TABLET. PO SCH (20:54)
[2019-09-07] MEDS: SIMVASTATIN 40 MG TABLET. PO SCH (20:57)
[2019-09-08] MEDS: ACETAMINOPHEN 500 MG TABLET PO SCH ×3 (02:33→15:43)
[2019-09-08] MEDS: oxyCODONE IR 5 MG TABLET PO PRN ×3 (02:35→14:23)
[2019-09-08 04:48] LABS: HEMOGLOBIN 10.5 g/dL (12.0-15.5)
[2019-09-08 04:52] LABS: PROTHROMBIN TIME PATIENT 13.8 SEC (11.7-14.0)
[2019-09-08 06:00] VITALS: BP 129/70
[2019-09-08] MEDS: traMADol 50 MG TABLET PO SCH ×2 (06:10→12:02)
[2019-09-08] MEDS: INSULIN LISPRO 300 UNITS/3 ML VIAL. SQ SCH ×2 (08:00→12:00)
[2019-09-08] MEDS: VENLAFAXINE 50 MG TABLET. PO SCH ×2 (08:25→14:22)
[2019-09-08] MEDS: MIRTAZAPINE 15 MG TABLET PO SCH (08:25)
[2019-09-08] MEDS: GLIMEPIRIDE 2 MG TABLET. PO SCH (08:26)
[2019-09-08] MEDS: SENNOSIDES/DOCUSATE 8.6/50MG TABLET. PO SCH (08:26)
[2019-09-08] MEDS: TRIAMTERENE/HCTZ 37.5/25MG TABLET. PO SCH (08:26)
[2019-09-08] MEDS: MULTIVITAMIN with MINERAL TABLET. PO SCH (08:27)
[2019-09-08] MEDS: LOSARTAN POTASSIUM 50 MG TABLET. PO SCH (08:27)
[2019-09-08] MEDS: MELOXICAM 7.5 MG TABLET PO SCH (08:27)
[2019-09-08] MEDS: METOPROLOL TART IMMED RELEASE 50 MG TABLET. PO SCH (08:28)
[2019-09-08] MEDS: ALPRAZolam 0.25 MG TABLET PO SCH ×2 (08:28→14:23)
[2019-09-08] MEDS: FERROUS SULFATE 325 MG TABLET. PO SCH (08:28)
--- NOTE | 2019-09-08 09:28 | NUR ---
Pharmacy Warfarin Dosing Note S:Pharmacy consulted to assist with anticoagulation therapy started 09/05/19 with target INR: 1.6 - 2.5 O:JINA MONTERROSO is a 59 year old F with CHLOÉ LABS: Last INR: 1.1 Last HGB: 10.9 Last HCT: 32.1 Last PLT: Last dose of 5 mg given on 09/06/19 at 1658 Previous Regimen: Vitamin K given: N Drug Interaction Changes: Same Interacting Drug Ongoing Drug Interactions: MOBSONY EDWARDS A:INR of 1.1 is below desired range. Target range for this patient is: 1.6 - 2.5 P: Warfarin dose: 7.5 mg Today PRIOR TO DISCHARGE Bridge Therapy: None Next INR due NEXT WEDNESDAY OR WEDNESDAY Pharmacy anticoagulation service will continue to follow. PHYLLIS FOX [facility], 09/08/19 0928
[2019-09-08] MEDS: metFORMIN XR 500 MG TAB.ER.24H PO SCH (09:38)
[2019-09-08] MEDS: IV NORMAL SALINE 1000ML BAG 1,000 ML IV SCH (12:46)
--- NOTE | 2019-09-08 13:08 | PATHOLOGY ---
[facility] Accession Number: [id number] . 01 Material submitted: . femur - RIGHT FEMORAL HEAD. Modifiers: right, head . 01 Clinical history: . Osteoarthritis right hip . 02 Diagnosis: Femoral head, right total hip arthroplasty: - Advanced degenerative arthritis with focal subarticular fibrosis and cystic degeneration. . (JPM:dulce; 09/08/2019) QMS 09/08/2019 0904 Local . 02 Electronically signed: . Pranav Varela MD, Pathologist NPI- [id number] . 01 Gross description: . The specimen is received in formalin, labeled "Chayo Estes, right femoral head". Received is a femoral head measuring 5.0 x 4.7 x 3.9 cm in greatest dimensions. The articular surface is pale torre and irregular in contour with a moderate amount of eburnation, as well as osteophytic lipping. Sectioning reveals yellow-torre cut surfaces with no grossly distinct nodules or lesions. The specimen is submitted representatively in cassette A1, following decalcification. ([facility]; 09/07/2019) QAC/QAC 09/07/2019 0854 Local . 02 Pathologist provided ICD-10: M16.11 . 02 CPT . 078671, [id number] Specimen Comment: A courtesy copy of this report has been sent to [phone], [phone] Specimen Comment: [id number] Specimen Comment: Report sent to / DR KUMARI Performed at: 01 [facility] [address] [id number] MD Giancarlo Ornelas MD Phone: [phone] Performed at: 02 [facility] [id number] MD Pranav Varela MD Phone: [phone]
[2019-09-08] MEDS ORDERED: WARFARIN 7.5 MG TABLET. PO ONE (14:00)
[2019-09-08 15:22] VITALS: BP 157/80
[2019-09-08] MEDS ORDERED: OXYC10TA PO (16:05)
[2019-09-08] MEDS ORDERED: WARF10TA45 MC (16:05)
--- NOTE | 2019-09-08 16:07 | DISCH ---
DISCHARGE INSTRUCTIONS Condition on Discharge Condition on Discharge: Stable Activity After Discharge Activity Instructions for Disc: Activity as tolerated, Progressive ambulation Bathing Instructions: No Tub Bath until see Lifting Instructions after Dis: No heavy lifting, No pulling or pushing Exercise Instruction after Dis: Exercise per therapy, Progress as tolerated Driving Instructions after Dis: Do not drive Weight Bearing Status after Di: Full weight bearing Diet after Discharge Diet after Discharge: Diabetic No Calorie Level Diet Texture: Regular Liquid Texture: Thin Liquid Wound Incision Care Wound/Incision Care: Ice to area for comfort, Keep wound elevated, Do not change dressing (maintain lesly dressing, when suction stops may cut off and tape overdressing call if saturated) Community/Resources/Services Services at Discharge: PT EVALUATE & TREAT Contacting the after DC Call your doctor for: Concerns you may have Follow-Up Follow Up With: Dr. Avendano on Sep 18 at 0830 Treatment/Equipment after DC Adaptive Equipment Issued: None, Front wheeled walker Warfarin Follow-Up Warfarin Follow UP: [facility] pharmacy will monitor and adjust [phone] GISELLE AVENDANO MD Sep 08, 2019 16:07
--- NOTE | 2019-09-08 16:27 | NUR ---
Discharge instructions with prescription. Answered questions and concerns. Both pt and spouse verbalized understanding. Pt discharged home.
--- NOTE | 2019-09-08 16:34 | PDOC ---
PROGRESS NOTES Subjective Subjective Problems overnight: Chayo indicates that her ability to get up and around safely with physical therapy today. Pain also better controlled despite initial difficulty due to her preoperative narcotic pain regimen Objective Vital Signs Vital Signs Date Time Temp Pulse Resp B/P (MAP) Pulse Ox O2 Delivery O2 Flow Rate FiO2 09/08/19 15:22 98.8 63 18 157/80 (105) 96 Room Air 98.8 09/07/19 19:56 1.5 Physical Exam Leg lengths equal good stability distal neurovascular status intact good range of motion lesly dressing intact Labs Laboratory Tests Test 09/06/19 16:51 09/06/19 20:26 09/07/19 04:20 09/07/19 06:14 Glucose (Fingerstick) 97 mg/dL (70-99) 129 mg/dL (70-99) 101 mg/dL (70-99) Hemoglobin 10.9 g/dL (12.0-15.5) Hematocrit 32.1 % (36.0-47.0) Mean Corpuscular Hemoglobin Concent 34 g/dL (31-37) Prothrombin Time 14.1 SEC (11.7-14.0) Prothromb Time International Ratio 1.1 (0.8-1.1) Test 09/07/19 11:56 09/07/19 16:53 09/08/19 04:25 09/08/19 11:32 Glucose (Fingerstick) 144 mg/dL (70-99) 99 mg/dL (70-99) 172 mg/dL (70-99) Hemoglobin 10.5 g/dL (12.0-15.5) Hematocrit 32.0 % (36.0-47.0) Mean Corpuscular Hemoglobin Concent 33 g/dL (31-37) Prothrombin Time 13.8 SEC (11.7-14.0) Prothromb Time International Ratio 1.1 (0.8-1.1) Laboratory Tests Test 09/07/19 16:53 09/08/19 04:25 09/08/19 11:32 Glucose (Fingerstick) 99 mg/dL (70-99) 172 mg/dL (70-99) Hemoglobin 10.5 g/dL (12.0-15.5) Hematocrit 32.0 % (36.0-47.0) Mean Corpuscular Hemoglobin Concent 33 g/dL (31-37) Prothrombin Time 13.8 SEC (11.7-14.0) Prothromb Time International Ratio 1.1 (0.8-1.1) Assessment Assessment POD# 3 total hip arthroplasty Plan Plan of Care Discharge home with outpatient physical therapy Oxycodone 10 mg every 4 hours when necessary pain, Coumadin per anticoagulation clinic Follow-up Dr. Avendano 2 weeks postoperatively GISELLE AVENDANO MD Sep 08, 2019 16:34
--- NOTE | 2019-09-08 20:15 | DS ---
DATE OF DISCHARGE: 09/08/2019 ORTHOPEDIC DISCHARGE SUMMARY PRINCIPAL DIAGNOSIS: Degenerative joint disease of right hip. PROCEDURE: Right total hip arthroplasty. ACTIVITY: Weightbearing as tolerated. DISCHARGE INSTRUCTIONS: Maintain total hip precautions. Maintain KUSHAL dressing, call if saturated. Follow up with Dr. Avendano in 2 weeks. DISPOSITION MEDICATIONS: Include oxycodone 10 mg p.o. q. 4 hours p.r.n. pain, Coumadin as directed by anticoagulation clinic, resume preoperative medications aside from aspirin and hydrocodone 7.5. BRIEF DESCRIPTION OF HOSPITAL COURSE: The patient underwent uncomplicated total hip arthroplasty and had difficulty with postoperative pain management due to her preoperative narcotic use. Particularly had some pain and limitations in terms of ambulation and transfers on postop day #1 and #2. Pain control is better on postoperative day #3 and she was discharged home in stable condition with planned outpatient physical therapy. GISELLE AVENDANO MD DR: PHOEBE/conor JOB#: [id number] / [id number]
== END 2019-09-08 16:27 | disposition home or self-care (01) | DRG 470 ==
LOC: SURG 10:39 → EDSTATUS 12:50 → 4 SOUTHEST 16:14 → OBSVTOIN 09-06 15:04
PROVIDERS: ADMIT Orthopaedic Surgery; ATTEND Orthopaedic Surgery
PROC: 0SR90JZ Replacement of Right Hip Joint with Synthetic Substitute, Open Approach (ICD-10-PCS; principal; 2019-09-05 12:00)
DX: M16.11 Unilateral primary osteoarthritis, right hip (principal); E11.9 Type 2 diabetes mellitus without complications; E78.00 Pure hypercholesterolemia, unspecified; F17.210 Nicotine dependence, cigarettes, uncomplicated; Z96.641 Presence of right artificial hip joint; I10 Essential (primary) hypertension; Z80.1 Family history of malignant neoplasm of trachea, bronchus and lung; Z81.8 Family history of other mental and behavioral disorders; Z82.0 Family history of epilepsy and other diseases of the nervous system; Z82.3 Family history of stroke; Z83.2 Family history of diseases of the blood and blood-forming organs and certain disorders involving the immune mechanism
CPT/HCPCS: 36415; 73502; 82962; 85014; 85018; 85610; 85730; 86850; 86900; 86901; 86920; 88304; 88311; 99406; A7015; C1713; G0378; G0379; J0171; J0696; J1100; J1170; J1815; J1885; J2001; J2250; J2270; J2405; J2704; J2710; J2795; J3010; J3490; J7030; J7120; 97116; 97150; 97530; 97535